=== PATIENT | male | born 1945 | race Caucasian/White ===

== ENCOUNTER 2016-11-12 01:02 | Emergency (ER) | payer MEDICARE ==
[~2016-11-12] VITALS: Ht 175.3 cm; Wt 81.8 kg
[~2016-11-12 01:02] MED LIST: ACET650S14 PR; ALPR0.255 PO; ASPI81TA2 PO; BENZ-26 PO; BISA10SU8 PR; BUSP5TAB20 PO; DSS100 PO; HYDR-3965 PO; IPRA3AMP4 NEB; MOM30 PO; SERT100T12 PO; SIMV40TA5 PO; THEO100T25 PO; TIOT185 IH
[2016-11-12] MEDS ORDERED: LORA0.5T2 PO (01:16)
[2016-11-12 02:07] LABS: BASOPHILS % (AUTO) 0.6 % (0.0-2.0); EOSINOPHILS % (AUTO) 2.5 % (1.0-6.0); HEMATOCRIT 41.4 % (41-53); HEMOGLOBIN 13.2 g/dL (13.5-17.5); LYMPHOCYTES # (AUTO) 1.5 K/uL (1.0-4.8); LYMPHOCYTES % (AUTO) 12.3 % (22.0-44.0); MEAN CORPUSCULAR HEMOGLOBIN 28.4 pg (26.0-34.0); MEAN CORPUSCULAR HGB CONC 31.8 G/dL (31.0-37.0); MEAN CORPUSCULAR VOLUME 90 fL (80-100); MONOCYTES # (AUTO) 0.5 K/uL (0.1-1.0); MONOCYTES % (AUTO) 4.4 % (2.0-9.0); NEUTROPHILS # (AUTO) 9.9 K/uL (1.8-7.7); NEUTROPHILS % (AUTO) 80.2 % (40.0-70.0); PLATELET COUNT (AUTO) 320 K/uL (150-450); RED BLOOD CELL COUNT(AUTO) 4.63 MIL/uL (4.50-5.90); RED CELL DISTRIBUTION WIDTH 15.7 % (11.5-14.5); WHITE BLOOD COUNT (AUTO) 12.3 K/uL (4.5-11.0)
[2016-11-12 02:14] LABS: INR 1.1 (0.9-1.1); PROTHROMBIN TIME 11.1 SEC (9.4-11.6)
[2016-11-12 02:15] LABS: ANION GAP 5 mmol/L (8-16); CALCIUM, TOTAL 9.2 mg/dL (8.8-10.5); CARBON DIOXIDE 36 mmol/L (22-29); CHLORIDE 100 mmol/L (98-107); CREATININE 0.65 mg/dL (0.60-1.30); GLOMERULAR FILTR. RATE CALC > 60 mL/min (>60); SODIUM SERUM 141 mmol/L (136-145); UREA NITROGEN, BLOOD 23 mg/dL (7-18)
[2016-11-12 02:21] LABS: ALANINE AMINOTRANSFERASE 17 U/L (12-78); ALBUMIN 3.6 g/dL (3.4-5.0); ASPARTATE AMINOTRANSFERASE 14 U/L (15-37); BILIRUBIN,TOTAL 0.2 mg/dL (0.1-1.0); CREATINE KINASE, TOTAL 63 U/L (39-308); TOTAL PROTEIN, SERUM 6.3 g/dL (6.4-8.2)
[2016-11-12 02:42] LABS: B-TYPE NATRIURETIC PEPTIDE 19 pg/mL (0-100)
[2016-11-12 03:29] VITALS: BP 124/70
== END 2016-11-12 03:57 | disposition home or self-care (01) ==
LOC: EMS 01:03
DX: J44.9 Chronic obstructive pulmonary disease, unspecified (principal); F41.9 Anxiety disorder, unspecified; J45.909 Unspecified asthma, uncomplicated; I10 Essential (primary) hypertension; Z79.82 Long term (current) use of aspirin; Z87.891 Personal history of nicotine dependence
CPT/HCPCS: 87040; 93005; 99285

== ENCOUNTER 2016-12-29 10:04 | Emergency (ER) | payer MEDICARE ==
[~2016-12-29] VITALS: Ht 177.8 cm; Wt 81.8 kg
[~2016-12-29 10:04] MED LIST changes: +LORA0.5T2 PO
[2016-12-29] MEDS ORDERED: NYST5L TP (10:20)
[2016-12-29] MEDS ORDERED: PANT40TA25 PO (10:20)
[2016-12-29] MEDS ORDERED: ACET325T47 PO (10:20)
[2016-12-29] MEDS ORDERED: GUAI100L26 PO (10:20)
[2016-12-29 10:23] LABS: BASOPHILS % (AUTO) 0.4 % (0.0-2.0); HEMATOCRIT 42.7 % (41-53); HEMOGLOBIN 13.6 g/dL (13.5-17.5); LYMPHOCYTES # (AUTO) 2.7 K/uL (1.0-4.8); LYMPHOCYTES % (AUTO) 23.3 % (22.0-44.0); MEAN CORPUSCULAR HEMOGLOBIN 28.5 pg (26.0-34.0); MEAN CORPUSCULAR HGB CONC 31.9 G/dL (31.0-37.0); MEAN CORPUSCULAR VOLUME 89 fL (80-100); MONOCYTES # (AUTO) 0.6 K/uL (0.1-1.0); MONOCYTES % (AUTO) 5.2 % (2.0-9.0); NEUTROPHILS # (AUTO) 7.8 K/uL (1.8-7.7); NEUTROPHILS % (AUTO) 68.1 % (40.0-70.0); PLATELET COUNT (AUTO) 303 K/uL (150-450); RED BLOOD CELL COUNT(AUTO) 4.79 MIL/uL (4.50-5.90); WHITE BLOOD COUNT (AUTO) 11.4 K/uL (4.5-11.0)
[2016-12-29 10:33] LABS: ANION GAP 5 mmol/L (8-16); CALCIUM, TOTAL 8.5 mg/dL (8.8-10.5); CARBON DIOXIDE 37 mmol/L (22-29); CHLORIDE 100 mmol/L (98-107); CREATININE 0.77 mg/dL (0.60-1.30); GLOMERULAR FILTR. RATE CALC > 60 mL/min (>60); POTASSIUM 3.9 mmol/L (3.5-5.1); SODIUM SERUM 142 mmol/L (136-145); UREA NITROGEN, BLOOD 18 mg/dL (7-18)
[2016-12-29 10:34] LABS: INR 1.1 (0.9-1.1); PROTHROMBIN TIME 11.3 SEC (9.4-11.6)
[2016-12-29 10:39] LABS: ALANINE AMINOTRANSFERASE 19 U/L (12-78); ALBUMIN 3.8 g/dL (3.4-5.0); ASPARTATE AMINOTRANSFERASE 15 U/L (15-37); BILIRUBIN,TOTAL 0.4 mg/dL (0.1-1.0); CREATINE KINASE, TOTAL 65 U/L (39-308); TOTAL PROTEIN, SERUM 7.5 g/dL (6.4-8.2)
[2016-12-29] MEDS ORDERED: MethylPREDNISolone SOD SUCC 125 MG/2 ML VIAL IVP ONE (10:45)
[2016-12-29] MEDS ORDERED: LORazepam 2 MG/ML VIAL IVP ONE (10:45)
[2016-12-29 10:53] LABS: B-TYPE NATRIURETIC PEPTIDE 21 pg/mL (0-100)
[2016-12-29] MEDS ORDERED: NYST15CR TP (10:53)
[2016-12-29] MEDS ORDERED: IPRATROPIUM BROMIDE 0.5 MG/2.5 ML NEB SOLUTION NEB ONE (12:15)
[2016-12-29] MEDS ORDERED: ALBUTEROL SULFATE 5 MG/ML 20 ML NEB SOLN [BULK] NEB ONE (12:15)
[2016-12-29 13:18] VITALS: BP 152/89
== END 2016-12-29 14:21 | disposition home or self-care (01) ==
LOC: EMS 10:07
DX: J44.1 Chronic obstructive pulmonary disease with (acute) exacerbation (principal); F41.9 Anxiety disorder, unspecified; Z87.891 Personal history of nicotine dependence; I10 Essential (primary) hypertension; J45.909 Unspecified asthma, uncomplicated; Z79.82 Long term (current) use of aspirin
CPT/HCPCS: 36415; 71010; 80053; 82550; 83880; 84484; 85025; 85610; 85730; 93005; 94060; 94644; 96374; 96375; 99285; J2060; J2930

== ENCOUNTER 2017-01-18 23:37 | Inpatient (IN) | payer MEDICARE ==
[~2017-01-18] VITALS: Ht 177.8 cm; Wt 87.3 kg
[~2017-01-18 23:37] MED LIST changes: -ALPR0.255 PO; -BENZ-26 PO; -BISA10SU8 PR; +GUAI100L26 PO; -HYDR-3965 PO; +NYST15CR TP; +PANT40TA25 PO; -THEO100T25 PO
[2017-01-19] VITALS (7 sets, daily range): BP systolic 106–156; BP diastolic 70–92
[2017-01-19] MEDS ORDERED: ALBUTEROL SULFATE 2.5 MG/0.5 ML NEB SOLUTION NEB ONE
[2017-01-19 00:15] LABS: ALANINE AMINOTRANSFERASE 20 U/L (12-78); ALBUMIN 3.2 g/dL (3.4-5.0); ANION GAP 0 mmol/L (8-16); ASPARTATE AMINOTRANSFERASE 13 U/L (15-37); BILIRUBIN,TOTAL 0.1 mg/dL (0.1-1.0); CALCIUM, TOTAL 8.9 mg/dL (8.8-10.5); CHLORIDE 101 mmol/L (98-107); CREATININE 0.77 mg/dL (0.60-1.30); GLOMERULAR FILTR. RATE CALC > 60 mL/min (>60); SODIUM SERUM 143 mmol/L (136-145); TOTAL PROTEIN, SERUM 6.7 g/dL (6.4-8.2); UREA NITROGEN, BLOOD 17 mg/dL (7-18)
[2017-01-19 00:16] LABS: BASOPHILS % (AUTO) 0.7 % (0.0-2.0); MONOCYTES # (AUTO) 0.7 K/uL (0.1-1.0)
[2017-01-19 00:20] LABS: EOSINOPHILS % (AUTO) 4.5 % (1.0-6.0); HEMATOCRIT 41.1 % (41-53); LYMPHOCYTES # (AUTO) 2.1 K/uL (1.0-4.8); LYMPHOCYTES % (AUTO) 20.3 % (22.0-44.0); MEAN CORPUSCULAR HEMOGLOBIN 28.6 pg (26.0-34.0); MEAN CORPUSCULAR HGB CONC 31.6 G/dL (31.0-37.0); MEAN CORPUSCULAR VOLUME 90 fL (80-100); MONOCYTES % (AUTO) 6.2 % (2.0-9.0); NEUTROPHILS # (AUTO) 7.2 K/uL (1.8-7.7); NEUTROPHILS % (AUTO) 68.3 % (40.0-70.0); PLATELET COUNT (AUTO) 293 K/uL (150-450); RED BLOOD CELL COUNT(AUTO) 4.54 MIL/uL (4.50-5.90); RED CELL DISTRIBUTION WIDTH 13.9 % (11.5-14.5); WHITE BLOOD COUNT (AUTO) 10.5 K/uL (4.5-11.0)
[2017-01-19 00:22] LABS: CARBON DIOXIDE 42 mmol/L (22-29)
[2017-01-19] MEDS ORDERED: MethylPREDNISolone SOD SUCC 125 MG/2 ML VIAL IVP ONE (00:30)
[2017-01-19] MEDS ORDERED: LORazepam 2 MG/ML VIAL IVP ONE (00:30)
[2017-01-19] MEDS ORDERED: ACETAMINOPHEN 325 MG TABLET PO PRN ×2 (02:00→07:30)
[2017-01-19] MEDS ORDERED: IPRATROPIUM BROMIDE 0.5 MG/2.5 ML NEB SOLUTION NEB ONE ×2 (02:00)
[2017-01-19] MEDS ORDERED: ALBUTEROL SULFATE 5 MG/ML 20 ML NEB SOLN [BULK] NEB ONE (02:00)
[2017-01-19] MEDS ORDERED: ONDANSETRON HCL 4 MG/2 ML VIAL IVP PRN (02:00)
[2017-01-19] MEDS ORDERED: 0.9% SODIUM CHLORIDE 10 ML SYRINGE IVP PRN (02:00)
[2017-01-19] MEDS ORDERED: 0.9% SODIUM CHLORIDE 5 ML NEB SOLUTION NEB ONE (02:07)
[2017-01-19 02:15] LABS: ABG A-A DIFF O2 77.5 mmHg (10-20.0); ABG BASE EXCESS 16.6 mmol/L (-2.0-3.0); ABG HCO3 35.8 mmol/L (22.0-26.0); ABG OXYHEMOGLOBIN 89.3 % (94.0-100.0); ABG PH 7.271 (7.35-7.450); TEMPERATURE, FAHRENHEIT, BG 98.6 FAHREN (96.0-98.6)
[2017-01-19] MEDS ORDERED: CefTRIAXone 1 GM/DEXTROSE 50 ML IV ONE (02:15)
[2017-01-19] MEDS: OXYGEN THERAPY IH SCH ×2 (02:17→07:23)
[2017-01-19 02:37] LABS: ABG PCO2 97 mmHg (35-45); ALLEN TEST, BLOOD GAS Positive
[2017-01-19] MEDS: IPRATROPIUM BROMIDE 0.5 MG/2.5 ML NEB SOLUTION NEB SCH ×5 (03:00→19:51)
[2017-01-19] MEDS: ALBUTEROL SULFATE 2.5 MG/0.5 ML NEB SOLUTION NEB SCH ×5 (03:00→19:51)
[2017-01-19] MEDS ORDERED: MAGNESIUM HYDROXIDE SUSPENSION 30 ML UDCUP PO PRN (07:30)
[2017-01-19] MEDS ORDERED: OxyCODONE HCL/ACETAMINOPHEN 5-325 MG TABLET PO PRN (07:30)
[2017-01-19] MEDS: MethylPREDNISolone SOD SUCC 125 MG/2 ML VIAL IVP SCH ×4 (08:28→23:13)
[2017-01-19] MEDS: HEPARIN SODIUM,PORCINE 5,000 UNITS/ML VIAL SQ SCH ×3 (08:29→23:13)
[2017-01-19] MEDS: PANTOPRAZOLE SODIUM 40 MG DR TABLET PO SCH (08:29)
[2017-01-19] MEDS: DOCUSATE SODIUM 100 MG CAPSULE PO SCH ×2 (08:29→19:59)
[2017-01-19] MEDS: TIOTROPIUM BROMIDE 18 MCG/INH HANDIHALER [5] IH SCH (08:30)
[2017-01-19] MEDS: LORazepam 0.5 MG TABLET PO PRN (19:59)
[2017-01-20] MEDS: IPRATROPIUM BROMIDE 0.5 MG/2.5 ML NEB SOLUTION NEB SCH ×7 (03:00→22:55)
[2017-01-20] MEDS: ALBUTEROL SULFATE 2.5 MG/0.5 ML NEB SOLUTION NEB SCH ×7 (03:00→22:55)
[2017-01-20 04:00] VITALS: BP 109/69
[2017-01-20] MEDS: MethylPREDNISolone SOD SUCC 125 MG/2 ML VIAL IVP SCH ×3 (05:25→22:55)
[2017-01-20 07:59] VITALS: BP 120/80
[2017-01-20] MEDS: HEPARIN SODIUM,PORCINE 5,000 UNITS/ML VIAL SQ SCH ×3 (08:33→22:55)
[2017-01-20] MEDS: PANTOPRAZOLE SODIUM 40 MG DR TABLET PO SCH (08:33)
[2017-01-20] MEDS: DOCUSATE SODIUM 100 MG CAPSULE PO SCH ×2 (08:33→20:43)
[2017-01-20] MEDS: TIOTROPIUM BROMIDE 18 MCG/INH HANDIHALER [5] IH SCH (10:12)
[2017-01-20 11:21] VITALS: BP 123/80
[2017-01-20] MEDS: ALPRAZolam 0.5 MG TABLET PO PRN (12:13)
[2017-01-20] MEDS ORDERED: ALBUTEROL SULFATE HFA 90 MCG/PUFF 8 GM INHALER IH PRN (12:45)
[2017-01-20] MEDS ORDERED: TIOTROPIUM BROMIDE 18 MCG/INH HANDIHALER [5] IH SCH (13:00)
[2017-01-20 15:59] VITALS: BP 122/87
[2017-01-20 19:19] VITALS: BP 125/74
[2017-01-20] MEDS: GuaiFENesin/D-METHORPHAN [SUGAR-FREE] 200-20MG/10 ML SYRUP UDCUP PO PRN (20:43)
[2017-01-20 23:49] VITALS: BP 102/68
[2017-01-21] MEDS: IPRATROPIUM BROMIDE 0.5 MG/2.5 ML NEB SOLUTION NEB SCH ×6 (03:50→23:05)
[2017-01-21] MEDS: ALBUTEROL SULFATE 2.5 MG/0.5 ML NEB SOLUTION NEB SCH ×6 (03:50→23:05)
[2017-01-21 04:35] VITALS: BP 133/87
[2017-01-21] MEDS: MethylPREDNISolone SOD SUCC 125 MG/2 ML VIAL IVP SCH ×3 (07:56→23:10)
[2017-01-21] MEDS: HEPARIN SODIUM,PORCINE 5,000 UNITS/ML VIAL SQ SCH ×3 (07:56→23:10)
[2017-01-21] MEDS: PANTOPRAZOLE SODIUM 40 MG DR TABLET PO SCH (08:00)
[2017-01-21] MEDS: DOCUSATE SODIUM 100 MG CAPSULE PO SCH ×2 (08:00→20:53)
[2017-01-21] MEDS: TIOTROPIUM BROMIDE 18 MCG/INH HANDIHALER [5] IH SCH (08:01)
[2017-01-21 08:15] VITALS: BP 140/83
[2017-01-21] MEDS: ALPRAZolam 0.5 MG TABLET PO PRN ×2 (09:28→20:55)
[2017-01-21 11:47] VITALS: BP 124/85
[2017-01-21 15:25] VITALS: BP 131/70
[2017-01-21 19:44] VITALS: BP 103/68
[2017-01-21] MEDS: GuaiFENesin/D-METHORPHAN [SUGAR-FREE] 200-20MG/10 ML SYRUP UDCUP PO PRN (20:57)
[2017-01-21] MEDS ORDERED: MOMETASONE FUROATE 50 MCG/SPRAY 17 GM NASAL SPRAY NASAL ONE (21:45)
[2017-01-21] MEDS: MOMETASONE FUROATE 50 MCG/SPRAY 17 GM NASAL SPRAY NASAL SCH (22:27)
[2017-01-21 23:33] VITALS: BP 130/87
[2017-01-22] MEDS: ALBUTEROL SULFATE 2.5 MG/0.5 ML NEB SOLUTION NEB SCH ×6 (02:56→23:11)
[2017-01-22] MEDS: IPRATROPIUM BROMIDE 0.5 MG/2.5 ML NEB SOLUTION NEB SCH ×6 (02:56→23:11)
[2017-01-22 05:12] VITALS: BP 112/74
[2017-01-22 07:52] VITALS: BP 118/67
[2017-01-22] MEDS: MethylPREDNISolone SOD SUCC 125 MG/2 ML VIAL IVP SCH (08:09)
[2017-01-22] MEDS: HEPARIN SODIUM,PORCINE 5,000 UNITS/ML VIAL SQ SCH ×3 (08:09→23:08)
[2017-01-22] MEDS: DOCUSATE SODIUM 100 MG CAPSULE PO SCH ×2 (08:09→19:46)
[2017-01-22] MEDS: PANTOPRAZOLE SODIUM 40 MG DR TABLET PO SCH (08:09)
[2017-01-22] MEDS: TIOTROPIUM BROMIDE 18 MCG/INH HANDIHALER [5] IH SCH (08:10)
[2017-01-22] MEDS: MOMETASONE FUROATE 50 MCG/SPRAY 17 GM NASAL SPRAY NASAL SCH (08:10)
[2017-01-22] MEDS: GuaiFENesin/D-METHORPHAN [SUGAR-FREE] 200-20MG/10 ML SYRUP UDCUP PO PRN (09:32)
[2017-01-22] MEDS: ALPRAZolam 0.5 MG TABLET PO PRN ×2 (09:32→21:16)
[2017-01-22] MEDS: PredniSONE 20 MG TABLET PO SCH (10:15)
[2017-01-22] MEDS ORDERED: ALBUTEROL SULFATE 2.5 MG/0.5 ML NEB SOLUTION NEB PRN (10:15)
[2017-01-22 10:27] LABS: BASOPHILS # (AUTO) 0.06 K/uL (0.00-0.20); BASOPHILS % (AUTO) 0.5 % (0.0-2.0); EOSINOPHILS % (AUTO) 0.02 % (1.0-6.0); HEMATOCRIT 41.5 % (41-53); HEMOGLOBIN 13.2 g/dL (13.5-17.5); LYMPHOCYTES # (AUTO) 0.6 K/uL (1.0-4.8); LYMPHOCYTES % (AUTO) 5.1 % (22.0-44.0); MEAN CORPUSCULAR HEMOGLOBIN 28.6 pg (26.0-34.0); MEAN CORPUSCULAR HGB CONC 31.8 G/dL (31.0-37.0); MEAN CORPUSCULAR VOLUME 90 fL (80-100); MONOCYTES # (AUTO) 0.7 K/uL (0.1-1.0); MONOCYTES % (AUTO) 5.8 % (2.0-9.0); NEUTROPHILS # (AUTO) 10.4 K/uL (1.8-7.7); PLATELET COUNT (AUTO) 324 K/uL (150-450); RED BLOOD CELL COUNT(AUTO) 4.62 MIL/uL (4.50-5.90); WHITE BLOOD COUNT (AUTO) 11.7 K/uL (4.5-11.0)
[2017-01-22 10:29] LABS: NEUTROPHILS % (AUTO) 88.6 % (40.0-70.0); RBC MORPHOLOGY COMMENT NORMAL RBC MORPH
[2017-01-22 10:34] LABS: ANION GAP 1 mmol/L (8-16); CALCIUM, TOTAL 8.3 mg/dL (8.8-10.5); CHLORIDE 100 mmol/L (98-107); CREATININE 0.61 mg/dL (0.60-1.30); GLOMERULAR FILTR. RATE CALC > 60 mL/min (>60); POTASSIUM 4.5 mmol/L (3.5-5.1); SODIUM SERUM 142 mmol/L (136-145); UREA NITROGEN, BLOOD 24 mg/dL (7-18)
[2017-01-22 10:38] LABS: CARBON DIOXIDE 41 mmol/L (22-29)
[2017-01-22 15:46] VITALS: BP 109/83
[2017-01-22 20:03] VITALS: BP 121/72
[2017-01-22] MEDS: NYSTATIN 30 GM CREAM TP SCH (21:16)
[2017-01-22 23:12] VITALS: BP 120/63
[2017-01-23] MEDS: ALBUTEROL SULFATE 2.5 MG/0.5 ML NEB SOLUTION NEB SCH ×6 (03:00→23:46)
[2017-01-23] MEDS: IPRATROPIUM BROMIDE 0.5 MG/2.5 ML NEB SOLUTION NEB SCH ×6 (03:00→23:46)
[2017-01-23 05:37] VITALS: BP 117/73
[2017-01-23] MEDS: TIOTROPIUM BROMIDE 18 MCG/INH HANDIHALER [5] IH SCH (08:52)
[2017-01-23] MEDS: MOMETASONE FUROATE 50 MCG/SPRAY 17 GM NASAL SPRAY NASAL SCH (08:53)
[2017-01-23] MEDS: HEPARIN SODIUM,PORCINE 5,000 UNITS/ML VIAL SQ SCH ×3 (08:54→23:29)
[2017-01-23] MEDS: NYSTATIN 30 GM CREAM TP SCH ×2 (08:55→20:10)
[2017-01-23] MEDS: PANTOPRAZOLE SODIUM 40 MG DR TABLET PO SCH (08:55)
[2017-01-23] MEDS: PredniSONE 20 MG TABLET PO SCH (08:55)
[2017-01-23] MEDS: DOCUSATE SODIUM 100 MG CAPSULE PO SCH ×2 (08:55→20:10)
[2017-01-23] MEDS ORDERED: 0.9% SODIUM CHLORIDE 5 ML NEB SOLUTION NEB ONE (10:08)
[2017-01-23] MEDS: ALPRAZolam 0.5 MG TABLET PO PRN ×2 (10:10→23:29)
[2017-01-23 12:45] VITALS: BP 98/66
[2017-01-23 16:12] VITALS: BP 107/59
[2017-01-23 20:02] VITALS: BP 126/69
[2017-01-23] MEDS: LORazepam 0.5 MG TABLET PO PRN (20:10)
[2017-01-23 23:32] VITALS: BP 128/81
[2017-01-24 03:30] VITALS: BP 124/78
[2017-01-24] MEDS: ALBUTEROL SULFATE 2.5 MG/0.5 ML NEB SOLUTION NEB SCH ×2 (03:32→07:21)
[2017-01-24] MEDS: IPRATROPIUM BROMIDE 0.5 MG/2.5 ML NEB SOLUTION NEB SCH ×2 (03:32→07:21)
[2017-01-24 07:29] VITALS: BP 152/97
[2017-01-24] MEDS: PredniSONE 20 MG TABLET PO SCH (10:11)
[2017-01-24] MEDS: MOMETASONE FUROATE 50 MCG/SPRAY 17 GM NASAL SPRAY NASAL SCH (10:11)
[2017-01-24] MEDS: PANTOPRAZOLE SODIUM 40 MG DR TABLET PO SCH (10:11)
[2017-01-24] MEDS: HEPARIN SODIUM,PORCINE 5,000 UNITS/ML VIAL SQ SCH (10:12)
[2017-01-24] MEDS: DOCUSATE SODIUM 100 MG CAPSULE PO SCH (10:12)
[2017-01-24] MEDS: TIOTROPIUM BROMIDE 18 MCG/INH HANDIHALER [5] IH SCH (10:12)
[2017-01-24] MEDS: NYSTATIN 30 GM CREAM TP SCH (10:16)
== END 2017-01-24 11:14 | DRG 189 ==
LOC: EMS 23:38 → 6N 01-19 02:07
PROVIDERS: ADMIT Internal Medicine; ATTEND Internal Medicine
PROC: 5A09357 Assistance with Respiratory Ventilation, Less than 24 Consecutive Hours, Continuous Positive Airway Pressure (ICD-10-PCS; principal; 2017-01-19)
DX: J96.21 Acute and chronic respiratory failure with hypoxia (principal); J44.1 Chronic obstructive pulmonary disease with (acute) exacerbation; R64 Cachexia; J96.22 Acute and chronic respiratory failure with hypercapnia; J96.11 Chronic respiratory failure with hypoxia; F41.1 Generalized anxiety disorder; I10 Essential (primary) hypertension; J45.909 Unspecified asthma, uncomplicated; Z72.0 Tobacco use; Z91.19 Patient's noncompliance with other medical treatment and regimen; Z79.82 Long term (current) use of aspirin; Z79.51 Long term (current) use of inhaled steroids; Z79.899 Other long term (current) drug therapy; Z98.890 Other specified postprocedural states; Z90.49 Acquired absence of other specified parts of digestive tract
CPT/HCPCS: 82805; 87040; 87081; 93005; 94640; 94644; 94660; 96365; 96375; 97161; 99291; J1644; J2060; J2930; J3535

== ENCOUNTER 2017-02-09 13:10 | Inpatient (IN) | payer MEDICARE ==
[~2017-02-09] VITALS: Ht 167.6 cm; Wt 93.9 kg
[2017-02-09] MEDS ORDERED: ACETAMINOPHEN 325 MG TABLET PO ONE (14:00)
[2017-02-09] MEDS ORDERED: ALBUTEROL SULFATE 5 MG/ML 20 ML NEB SOLN [BULK] NEB ONE ×2 (14:00→15:30)
[2017-02-09] MEDS ORDERED: IPRATROPIUM BROMIDE 0.5 MG/2.5 ML NEB SOLUTION NEB ONE ×2 (14:00→15:30)
[2017-02-09] MEDS ORDERED: MethylPREDNISolone SOD SUCC 125 MG/2 ML VIAL IVP ONE (14:00)
[2017-02-09 14:05] LABS: EOSINOPHILS % (AUTO) 0.02 % (1.0-6.0); HEMATOCRIT 44.2 % (41-53); HEMOGLOBIN 13.9 g/dL (13.5-17.5); LYMPHOCYTES # (AUTO) 0.2 K/uL (1.0-4.8); LYMPHOCYTES % (AUTO) 1.1 % (22.0-44.0); MEAN CORPUSCULAR HEMOGLOBIN 28.5 pg (26.0-34.0); MEAN CORPUSCULAR HGB CONC 31.3 G/dL (31.0-37.0); MEAN CORPUSCULAR VOLUME 91 fL (80-100); MONOCYTES # (AUTO) 0.2 K/uL (0.1-1.0); NEUTROPHILS # (AUTO) 17.5 K/uL (1.8-7.7); PLATELET COUNT (AUTO) 271 K/uL (150-450); RED BLOOD CELL COUNT(AUTO) 4.86 MIL/uL (4.50-5.90); RED CELL DISTRIBUTION WIDTH 13.8 % (11.5-14.5); WHITE BLOOD COUNT (AUTO) 17.9 K/uL (4.5-11.0)
[2017-02-09 14:06] LABS: NEUTROPHILS % (AUTO) 97.9 % (40.0-70.0)
[2017-02-09 14:21] LABS: ALANINE AMINOTRANSFERASE 20 U/L (12-78); ALBUMIN 3.1 g/dL (3.4-5.0); ANION GAP 0 mmol/L (8-16); ASPARTATE AMINOTRANSFERASE 12 U/L (15-37); BILIRUBIN,TOTAL 0.5 mg/dL (0.1-1.0); CALCIUM, TOTAL 9.1 mg/dL (8.8-10.5); CHLORIDE 91 mmol/L (98-107); CREATINE KINASE, TOTAL 32 U/L (39-308); CREATININE 0.61 mg/dL (0.60-1.30); GLOMERULAR FILTR. RATE CALC > 60 mL/min (>60); POTASSIUM 4.9 mmol/L (3.5-5.1); SODIUM SERUM 134 mmol/L (136-145); TOTAL PROTEIN, SERUM 7.6 g/dL (6.4-8.2); UREA NITROGEN, BLOOD 24 mg/dL (7-18)
[2017-02-09 14:26] LABS: CARBON DIOXIDE 43 mmol/L (22-29)
[2017-02-09 14:30] LABS: B-TYPE NATRIURETIC PEPTIDE 38 pg/mL (0-100)
[2017-02-09 15:16] LABS: ABG BASE EXCESS 19.1 mmol/L (-2.0-3.0); ABG HCO3 37.3 mmol/L (22.0-26.0); ABG PH 7.218 (7.35-7.450); TEMPERATURE, FAHRENHEIT, BG 98.3 FAHREN (96.0-98.6)
[2017-02-09 15:18] LABS: ABG PCO2 118 mmHg (35-45); ALLEN TEST, BLOOD GAS Positive
[2017-02-09 17:19] LABS: ABG A-A DIFF O2 99.5 mmHg (10-20.0); ABG BASE EXCESS 17.8 mmol/L (-2.0-3.0); ABG HCO3 36.5 mmol/L (22.0-26.0); ABG OXYHEMOGLOBIN 90.6 % (94.0-100.0); ABG PH 7.266 (7.35-7.450); TEMPERATURE, FAHRENHEIT, BG 98.6 FAHREN (96.0-98.6)
[2017-02-09 17:21] LABS: ABG PCO2 101 mmHg (35-45); ALLEN TEST, BLOOD GAS Positive
[2017-02-09 17:22] LABS: IPAP, BG 16 cm H2O
[2017-02-09] MEDS ORDERED: ACETAMINOPHEN 325 MG TABLET PO PRN (18:45)
[2017-02-09] MEDS ORDERED: ONDANSETRON HCL 4 MG/2 ML VIAL IVP PRN (18:45)
[2017-02-09] MEDS: IPRATROPIUM BROMIDE 0.5 MG/2.5 ML NEB SOLUTION NEB SCH ×2 (19:02→23:37)
[2017-02-09] MEDS: ALBUTEROL SULFATE 2.5 MG/0.5 ML NEB SOLUTION NEB SCH ×2 (19:02→23:37)
[2017-02-09 20:58] VITALS: BP 145/94
[2017-02-10] VITALS (8 sets, daily range): BP systolic 76–158; BP diastolic 54–84
[2017-02-10] MEDS ORDERED: MAGNESIUM HYDROXIDE SUSPENSION 30 ML UDCUP PO PRN (01:15)
[2017-02-10] MEDS ORDERED: ONDANSETRON HCL 4 MG/2 ML VIAL IVP PRN (01:15)
[2017-02-10] MEDS ORDERED: BISACODYL 10 MG RECTAL RECTAL SUPPOSITORY PR PRN (01:15)
[2017-02-10] MEDS ORDERED: ACETAMINOPHEN 325 MG TABLET PO PRN (01:15)
[2017-02-10] MEDS ORDERED: GuaiFENesin [SUGAR-FREE] 200 MG/10 ML SOLUTION UDCUP PO PRN (01:15)
[2017-02-10] MEDS ORDERED: ZOLPIDEM TARTRATE 5 MG TABLET PO PRN (01:15)
[2017-02-10] MEDS: MethylPREDNISolone SOD SUCC 125 MG/2 ML VIAL IVP SCH ×3 (05:41→18:17)
[2017-02-10] MEDS: HEPARIN SODIUM,PORCINE 5,000 UNITS/ML VIAL SQ SCH ×2 (08:00→15:04)
[2017-02-10] MEDS: ASPIRIN 81 MG CHEWABLE TABLET PO SCH (09:00)
[2017-02-10] MEDS: DOCUSATE SODIUM 100 MG CAPSULE PO SCH ×2 (09:00→21:38)
[2017-02-10] MEDS ORDERED: PANTOPRAZOLE SODIUM 40 MG DR TABLET PO SCH (09:00)
[2017-02-10] MEDS: BusPIRone HCL 5 MG TABLET PO SCH ×2 (09:00→23:05)
[2017-02-10] MEDS: PANTOPRAZOLE SODIUM 40 MG/VIAL IVP SCH (09:00)
[2017-02-10 10:36] LABS: ABG A-A DIFF O2 107.2 mmHg (10-20.0); ABG BASE EXCESS 20.2 mmol/L (-2.0-3.0); ABG HCO3 36.9 mmol/L (22.0-26.0); ABG OXYHEMOGLOBIN 91.6 % (94.0-100.0); TEMPERATURE, FAHRENHEIT, BG 98.1 FAHREN (96.0-98.6)
[2017-02-10 10:41] LABS: ABG PCO2 154 mmHg (35-45); ABG PH 7.124 (7.35-7.450); ALLEN TEST, BLOOD GAS Positive
[2017-02-10 10:42] LABS: IPAP, BG 20 cm H2O
[2017-02-10] MEDS ORDERED: VECURONIUM BROMIDE 10 MG/VIAL IVP ONE (11:20)
[2017-02-10] MEDS ORDERED: ETOMIDATE 2 MG/ML 10 ML VIAL IVP ONE (11:20)
[2017-02-10 12:27] LABS: ABG A-A DIFF O2 183.1 mmHg (10-20.0); ABG BASE EXCESS 12.2 mmol/L (-2.0-3.0); ABG HCO3 32.2 mmol/L (22.0-26.0); ABG OXYHEMOGLOBIN 93.3 % (94.0-100.0); ABG PH 7.273 (7.35-7.450); TEMPERATURE, FAHRENHEIT, BG 98.6 FAHREN (96.0-98.6)
[2017-02-10 12:28] LABS: ABG PCO2 86 mmHg (35-45); ALLEN TEST, BLOOD GAS Positive
[2017-02-10 12:29] LABS: INSIPIRATORY PRESSURE, BG 32 cm H2O
[2017-02-10] MEDS: SODIUM CHLORIDE 0.9% 1,000 ML IV SCH (15:05)
[2017-02-10] MEDS: MORPHINE SULFATE 2 MG/ML SYRINGE IVP PRN (16:08)
[2017-02-10] MEDS ORDERED: ETOMIDATE 2 MG/ML 10 ML VIAL IV ONE (16:55)
[2017-02-10] MEDS ORDERED: VECURONIUM BROMIDE 10 MG/VIAL IV ONE (16:55)
[2017-02-10] MEDS ORDERED: VANCOMYCIN HCL 1 GM/D5% WATER 200 ML IV ONE (17:00)
[2017-02-10] MEDS ORDERED: RAPID SEQUENCE KIT [RSI] 1 EACH KIT ONE ×2 (17:05)
[2017-02-10] MEDS ORDERED: SODIUM CHLORIDE 0.9% 250 ML IV ONE ×3 (17:15→20:00)
[2017-02-10] MEDS: PIPERACILLIN/TAZO 3.375 GM/D5W 50 ML IV SCH ×2 (17:19→23:06)
[2017-02-10 17:24] LABS: CREATINE KINASE, TOTAL 20 U/L (39-308)
[2017-02-10] MEDS ORDERED: 0.9% SODIUM CHLORIDE 10 ML SYRINGE IVP PRN (17:30)
[2017-02-10] MEDS: ALBUMIN HUMAN 25%-12.5GM/50ML 50 ML IV SCH (18:17)
[2017-02-10 19:28] LABS: HEMOGLOBIN 12.2 g/dL (13.5-17.5); MEAN CORPUSCULAR HEMOGLOBIN 28.7 pg (26.0-34.0); MEAN CORPUSCULAR HGB CONC 32.1 G/dL (31.0-37.0); MEAN CORPUSCULAR VOLUME 89 fL (80-100); PLATELET COUNT (AUTO) 253 K/uL (150-450); RED BLOOD CELL COUNT(AUTO) 4.25 MIL/uL (4.50-5.90); RED CELL DISTRIBUTION WIDTH 14.2 % (11.5-14.5); WHITE BLOOD COUNT (AUTO) 8.2 K/uL (4.5-11.0)
[2017-02-10 19:41] LABS: CALCIUM, TOTAL 8.9 mg/dL (8.8-10.5); CREATININE 2.12 mg/dL (0.60-1.30); POTASSIUM 5.1 mmol/L (3.5-5.1)
[2017-02-10 19:46] LABS: ALBUMIN 2.9 g/dL (3.4-5.0); BILIRUBIN,TOTAL 0.7 mg/dL (0.1-1.0); TOTAL PROTEIN, SERUM 7.1 g/dL (6.4-8.2)
[2017-02-10 19:49] LABS: BAND NEUTROPHILS % (MANUAL) 23 % (1-5); EOSINOPHILS % (MANUAL) 1 % (1-6); LYMPHOCYTES % (MANUAL) 6 % (22-44); RBC MORPHOLOGY COMMENT NORMAL RBC; TOTAL CELLS COUNTED 100
[2017-02-10] MEDS: SIMVASTATIN 40 MG TABLET PO SCH (21:38)
[2017-02-10] MEDS: LORazepam 0.5 MG TABLET PO SCH (21:38)
[2017-02-10] MEDS ORDERED: VANCOMYCIN HCL 500 MG in DEXTROSE 5%-WATER 100 ML IV ONE (23:00)
[2017-02-11] VITALS (9 sets, daily range): BP systolic 105–148; BP diastolic 57–86
[2017-02-11] MEDS: MethylPREDNISolone SOD SUCC 125 MG/2 ML VIAL IVP SCH ×5 (01:28→23:26)
[2017-02-11] MEDS: HEPARIN SODIUM,PORCINE 5,000 UNITS/ML VIAL SQ SCH ×4 (01:29→23:27)
[2017-02-11 02:15] LABS: CREATINE KINASE, TOTAL 43 U/L (39-308)
[2017-02-11] MEDS: ALBUMIN HUMAN 25%-12.5GM/50ML 50 ML IV SCH ×3 (02:22→18:00)
[2017-02-11] MEDS: MORPHINE SULFATE 2 MG/ML SYRINGE IVP PRN ×3 (02:23→22:17)
[2017-02-11] MEDS: SODIUM CHLORIDE 0.9% 1,000 ML IV SCH ×2 (04:54→18:24)
[2017-02-11] MEDS: PIPERACILLIN/TAZO 3.375 GM/D5W 50 ML IV SCH ×4 (04:55→22:36)
[2017-02-11 06:21] LABS: BASOPHILS % (AUTO) 0.1 % (0.0-2.0); EOSINOPHILS % (AUTO) 0 % (1.0-6.0); HEMATOCRIT 35.1 % (41-53); HEMOGLOBIN 11.1 g/dL (13.5-17.5); LYMPHOCYTES # (AUTO) 0.4 K/uL (1.0-4.8); LYMPHOCYTES % (AUTO) 4.3 % (22.0-44.0); MEAN CORPUSCULAR HEMOGLOBIN 28.2 pg (26.0-34.0); MEAN CORPUSCULAR HGB CONC 31.6 G/dL (31.0-37.0); MEAN CORPUSCULAR VOLUME 89 fL (80-100); MONOCYTES # (AUTO) 0.3 K/uL (0.1-1.0); MONOCYTES % (AUTO) 3.3 % (2.0-9.0); NEUTROPHILS # (AUTO) 8.6 K/uL (1.8-7.7); PLATELET COUNT (AUTO) 268 K/uL (150-450); RED BLOOD CELL COUNT(AUTO) 3.94 MIL/uL (4.50-5.90); WHITE BLOOD COUNT (AUTO) 9.4 K/uL (4.5-11.0)
[2017-02-11 07:06] LABS: ALBUMIN 2.7 g/dL (3.4-5.0); BILIRUBIN,TOTAL 0.6 mg/dL (0.1-1.0); CALCIUM, TOTAL 8.7 mg/dL (8.8-10.5); CREATININE 1.44 mg/dL (0.60-1.30); MAGNESIUM 2.3 mg/dL (1.80-2.40); THYROID STIMULATING HORMONE 0.43 uIU/mL (0.36-3.74); TOTAL PROTEIN, SERUM 6.8 g/dL (6.4-8.2)
[2017-02-11 07:23] LABS: NEUTROPHILS % (AUTO) 92.3 % (40.0-70.0)
[2017-02-11] MEDS ORDERED: VANCOMYCIN HCL 1 GM/D5% WATER 200 ML IV SCH (08:00)
[2017-02-11] MEDS ORDERED: VANCOMYCIN HCL 1.5 GM in DEXTROSE 5%-WATER 250 ML IV SCH (08:00)
[2017-02-11] MEDS: PANTOPRAZOLE SODIUM 40 MG/VIAL IVP SCH (08:29)
[2017-02-11] MEDS: ASPIRIN 81 MG CHEWABLE TABLET PO SCH (08:29)
[2017-02-11] MEDS: DOCUSATE SODIUM 100 MG CAPSULE PO SCH ×2 (08:29→21:09)
[2017-02-11] MEDS: BusPIRone HCL 5 MG TABLET PO SCH ×2 (08:29→21:09)
[2017-02-11 08:50] LABS: CREATINE KINASE, TOTAL 69 U/L (39-308)
[2017-02-11] MEDS: BUDESONIDE 0.5 MG/2 ML NEB SOLUTION NEB SCH ×2 (08:55→20:46)
[2017-02-11 11:12] LABS: ABG A-A DIFF O2 119.1 mmHg (10-20.0); ABG BASE EXCESS 9.9 mmol/L (-2.0-3.0); ABG HCO3 32.1 mmol/L (22.0-26.0); ABG OXYHEMOGLOBIN 97.7 % (94.0-100.0); ABG PCO2 56 mmHg (35-45); TEMPERATURE, FAHRENHEIT, BG 98.1 FAHREN (96.0-98.6)
[2017-02-11 11:13] LABS: ALLEN TEST, BLOOD GAS Positive
[2017-02-11] MEDS ORDERED: SODIUM PHOS,M-BASIC-D-BASIC 30 MMOL in DEXTROSE 5%-WATER 250 ML IV ONE (13:00)
[2017-02-11] MEDS: ACETYLCYSTEINE 20% 200 MG/ML 4 ML NEB SOLUTION NEB SCH ×2 (16:36→20:47)
[2017-02-11] MEDS: HYDROCODONE/ACETAMINOPHEN 5-325 MG TABLET PO PRN (16:44)
[2017-02-11] MEDS: ALBUTEROL SULFATE 2.5 MG/0.5 ML NEB SOLUTION NEB PRN (20:46)
[2017-02-11] MEDS: LORazepam 0.5 MG TABLET PO SCH (21:08)
[2017-02-11] MEDS: SIMVASTATIN 40 MG TABLET PO SCH (21:08)
[2017-02-12] VITALS (8 sets, daily range): BP systolic 110–168; BP diastolic 60–97
[2017-02-12] MEDS: MORPHINE SULFATE 2 MG/ML SYRINGE IVP PRN ×3 (00:58→16:47)
[2017-02-12] MEDS: ALBUMIN HUMAN 25%-12.5GM/50ML 50 ML IV SCH ×3 (01:19→18:42)
[2017-02-12] MEDS: PIPERACILLIN/TAZO 3.375 GM/D5W 50 ML IV SCH ×4 (05:05→23:10)
[2017-02-12 05:25] LABS: BASOPHILS # (AUTO) 0.01 K/uL (0.00-0.20); BASOPHILS % (AUTO) 0.1 % (0.0-2.0); EOSINOPHILS % (AUTO) 0.01 % (1.0-6.0); HEMATOCRIT 30.6 % (41-53); HEMOGLOBIN 9.9 g/dL (13.5-17.5); LYMPHOCYTES # (AUTO) 0.4 K/uL (1.0-4.8); LYMPHOCYTES % (AUTO) 4.2 % (22.0-44.0); MEAN CORPUSCULAR HEMOGLOBIN 28.9 pg (26.0-34.0); MEAN CORPUSCULAR HGB CONC 32.3 G/dL (31.0-37.0); MEAN CORPUSCULAR VOLUME 89 fL (80-100); MONOCYTES # (AUTO) 0.2 K/uL (0.1-1.0); MONOCYTES % (AUTO) 1.9 % (2.0-9.0); NEUTROPHILS # (AUTO) 7.9 K/uL (1.8-7.7); PLATELET COUNT (AUTO) 237 K/uL (150-450); RED BLOOD CELL COUNT(AUTO) 3.42 MIL/uL (4.50-5.90); RED CELL DISTRIBUTION WIDTH 13.9 % (11.5-14.5); WHITE BLOOD COUNT (AUTO) 8.4 K/uL (4.5-11.0)
[2017-02-12 05:41] LABS: NEUTROPHILS % (AUTO) 93.8 % (40.0-70.0)
[2017-02-12 05:55] LABS: ALANINE AMINOTRANSFERASE 70 U/L (12-78); ALBUMIN 2.8 g/dL (3.4-5.0); ANION GAP 9 mmol/L (8-16); ASPARTATE AMINOTRANSFERASE 32 U/L (15-37); BILIRUBIN,TOTAL 0.4 mg/dL (0.1-1.0); CALCIUM, TOTAL 7.8 mg/dL (8.8-10.5); CARBON DIOXIDE 33 mmol/L (22-29); CHLORIDE 96 mmol/L (98-107); CREATININE 0.88 mg/dL (0.60-1.30); GLOMERULAR FILTR. RATE CALC > 60 mL/min (>60); POTASSIUM 3.7 mmol/L (3.5-5.1); SODIUM SERUM 138 mmol/L (136-145); TOTAL PROTEIN, SERUM 6.4 g/dL (6.4-8.2); UREA NITROGEN, BLOOD 47 mg/dL (7-18)
[2017-02-12] MEDS: MethylPREDNISolone SOD SUCC 125 MG/2 ML VIAL IVP SCH ×4 (06:10→23:10)
[2017-02-12] MEDS: BUDESONIDE 0.5 MG/2 ML NEB SOLUTION NEB SCH ×2 (07:32→20:46)
[2017-02-12] MEDS: ACETYLCYSTEINE 20% 200 MG/ML 4 ML NEB SOLUTION NEB SCH ×4 (07:33→20:46)
[2017-02-12 07:40] LABS: RBC MORPHOLOGY COMMENT NORMAL RBC MORPH
[2017-02-12 07:52] LABS: ABG A-A DIFF O2 49.9 mmHg (10-20.0); ABG BASE EXCESS 5.6 mmol/L (-2.0-3.0); ABG HCO3 28.8 mmol/L (22.0-26.0); ABG OXYHEMOGLOBIN 99.1 % (94.0-100.0); ABG PCO2 48 mmHg (35-45); ABG PH 7.417 (7.35-7.450); ALLEN TEST, BLOOD GAS Positive; TEMPERATURE, FAHRENHEIT, BG 98.6 FAHREN (96.0-98.6)
[2017-02-12 07:53] LABS: INSIPIRATORY PRESSURE, BG 32 cm H2O
[2017-02-12] MEDS: VANCOMYCIN HCL 1 GM/D5% WATER 200 ML IV SCH ×2 (08:30→19:33)
[2017-02-12] MEDS: DOCUSATE SODIUM 100 MG CAPSULE PO SCH ×2 (08:31→20:55)
[2017-02-12] MEDS: ASPIRIN 81 MG CHEWABLE TABLET PO SCH (08:31)
[2017-02-12] MEDS: SODIUM CHLORIDE 0.9% 1,000 ML IV SCH ×2 (08:31→23:11)
[2017-02-12] MEDS: BusPIRone HCL 5 MG TABLET PO SCH ×2 (08:32→20:55)
[2017-02-12] MEDS: PANTOPRAZOLE SODIUM 40 MG/VIAL IVP SCH (08:32)
[2017-02-12] MEDS: HEPARIN SODIUM,PORCINE 5,000 UNITS/ML VIAL SQ SCH ×3 (08:39→23:10)
[2017-02-12] MEDS: LORazepam 2 MG/ML VIAL IVP PRN (16:40)
[2017-02-12] MEDS: PROPOFOL 1000 MG/ISO-OSM 100 ML IV PRN (19:30)
[2017-02-12] MEDS ORDERED: SODIUM CHLORIDE 0.9% 250 ML IV ONE (19:48)
[2017-02-12] MEDS: ALBUTEROL SULFATE 2.5 MG/0.5 ML NEB SOLUTION NEB PRN (20:45)
[2017-02-12] MEDS: SIMVASTATIN 40 MG TABLET PO SCH (20:55)
[2017-02-12] MEDS: LORazepam 0.5 MG TABLET PO SCH (20:55)
[2017-02-13] VITALS (8 sets, daily range): BP systolic 109–166; BP diastolic 66–98
[2017-02-13] MEDS: ALBUMIN HUMAN 25%-12.5GM/50ML 50 ML IV SCH ×3 (02:12→17:51)
[2017-02-13] MEDS: MethylPREDNISolone SOD SUCC 125 MG/2 ML VIAL IVP SCH ×4 (05:24→23:42)
[2017-02-13] MEDS: PIPERACILLIN/TAZO 3.375 GM/D5W 50 ML IV SCH ×4 (05:24→23:05)
[2017-02-13 05:44] LABS: BASOPHILS # (AUTO) 0.02 K/uL (0.00-0.20); BASOPHILS % (AUTO) 0.2 % (0.0-2.0); EOSINOPHILS # (AUTO) 0.01 K/uL (0.00-0.70); EOSINOPHILS % (AUTO) 0.05 % (1.0-6.0); HEMATOCRIT 29.5 % (41-53); HEMOGLOBIN 9.5 g/dL (13.5-17.5); LYMPHOCYTES # (AUTO) 0.4 K/uL (1.0-4.8); LYMPHOCYTES % (AUTO) 4.1 % (22.0-44.0); MEAN CORPUSCULAR HGB CONC 32.1 G/dL (31.0-37.0); MEAN CORPUSCULAR VOLUME 90 fL (80-100); MONOCYTES # (AUTO) 0.2 K/uL (0.1-1.0); NEUTROPHILS # (AUTO) 9.8 K/uL (1.8-7.7); PLATELET COUNT (AUTO) 238 K/uL (150-450); RED BLOOD CELL COUNT(AUTO) 3.27 MIL/uL (4.50-5.90); RED CELL DISTRIBUTION WIDTH 14.1 % (11.5-14.5); WHITE BLOOD COUNT (AUTO) 10.4 K/uL (4.5-11.0)
[2017-02-13] MEDS: PROPOFOL 1000 MG/ISO-OSM 100 ML IV PRN ×5 (06:01→23:41)
[2017-02-13 06:05] LABS: ALANINE AMINOTRANSFERASE 69 U/L (12-78); ANION GAP 8 mmol/L (8-16); ASPARTATE AMINOTRANSFERASE 29 U/L (15-37); BILIRUBIN,TOTAL 0.4 mg/dL (0.1-1.0); CALCIUM, TOTAL 7.7 mg/dL (8.8-10.5); CARBON DIOXIDE 32 mmol/L (22-29); CHLORIDE 102 mmol/L (98-107); CREATININE 0.68 mg/dL (0.60-1.30); GLOMERULAR FILTR. RATE CALC > 60 mL/min (>60); POTASSIUM 3.7 mmol/L (3.5-5.1); SODIUM SERUM 142 mmol/L (136-145); TOTAL PROTEIN, SERUM 6.4 g/dL (6.4-8.2); UREA NITROGEN, BLOOD 40 mg/dL (7-18)
[2017-02-13 07:17] LABS: NEUTROPHILS % (AUTO) 93.7 % (40.0-70.0)
[2017-02-13] MEDS: VANCOMYCIN HCL 1 GM/D5% WATER 200 ML IV SCH ×2 (07:34→20:02)
[2017-02-13] MEDS: HEPARIN SODIUM,PORCINE 5,000 UNITS/ML VIAL SQ SCH ×3 (07:35→23:41)
[2017-02-13] MEDS: IPRATROPIUM BROMIDE 0.5 MG/2.5 ML NEB SOLUTION NEB PRN ×2 (08:21→20:49)
[2017-02-13] MEDS: ALBUTEROL SULFATE 2.5 MG/0.5 ML NEB SOLUTION NEB PRN ×3 (08:21→20:49)
[2017-02-13] MEDS: ACETYLCYSTEINE 20% 200 MG/ML 4 ML NEB SOLUTION NEB SCH ×3 (08:21→20:55)
[2017-02-13] MEDS: BUDESONIDE 0.5 MG/2 ML NEB SOLUTION NEB SCH ×2 (08:21→20:49)
[2017-02-13] MEDS: DOCUSATE SODIUM 100 MG CAPSULE PO SCH ×2 (09:00→21:09)
[2017-02-13] MEDS: SODIUM CHLORIDE 0.9% 1,000 ML IV SCH (09:30)
[2017-02-13] MEDS: ASPIRIN 81 MG CHEWABLE TABLET PO SCH (09:31)
[2017-02-13] MEDS: BusPIRone HCL 5 MG TABLET PO SCH ×2 (09:31→21:09)
[2017-02-13] MEDS: PANTOPRAZOLE SODIUM 40 MG/VIAL IVP SCH (09:40)
[2017-02-13 10:03] LABS: PROTHROMBIN TIME 10.9 SEC (9.4-11.6)
[2017-02-13] MEDS: SIMVASTATIN 40 MG TABLET PO SCH (21:09)
[2017-02-13] MEDS: LORazepam 0.5 MG TABLET PO SCH (21:09)
[2017-02-13] MEDS ORDERED: SODIUM CHLORIDE 0.9% 250 ML IV ONE (22:54)
[2017-02-13] MEDS: MORPHINE SULFATE 2 MG/ML SYRINGE IVP PRN (23:42)
[2017-02-14] VITALS (11 sets, daily range): BP systolic 114–153; BP diastolic 64–82
[2017-02-14] MEDS: SODIUM CHLORIDE 0.9% 1,000 ML IV SCH ×2 (00:36→13:25)
[2017-02-14] MEDS: ALBUMIN HUMAN 25%-12.5GM/50ML 50 ML IV SCH ×3 (02:18→17:17)
[2017-02-14] MEDS: PIPERACILLIN/TAZO 3.375 GM/D5W 50 ML IV SCH ×3 (04:53→16:06)
[2017-02-14 05:33] LABS: BASOPHILS % (AUTO) 0.1 % (0.0-2.0); EOSINOPHILS % (AUTO) 0 % (1.0-6.0); HEMOGLOBIN 9.4 g/dL (13.5-17.5); LYMPHOCYTES # (AUTO) 0.4 K/uL (1.0-4.8); LYMPHOCYTES % (AUTO) 3.8 % (22.0-44.0); MEAN CORPUSCULAR HEMOGLOBIN 27.7 pg (26.0-34.0); MEAN CORPUSCULAR HGB CONC 31.3 G/dL (31.0-37.0); MEAN CORPUSCULAR VOLUME 89 fL (80-100); MONOCYTES # (AUTO) 0.4 K/uL (0.1-1.0); NEUTROPHILS # (AUTO) 9.1 K/uL (1.8-7.7); PLATELET COUNT (AUTO) 216 K/uL (150-450); RED BLOOD CELL COUNT(AUTO) 3.38 MIL/uL (4.50-5.90); RED CELL DISTRIBUTION WIDTH 14.1 % (11.5-14.5); WHITE BLOOD COUNT (AUTO) 9.9 K/uL (4.5-11.0)
[2017-02-14] MEDS: MethylPREDNISolone SOD SUCC 125 MG/2 ML VIAL IVP SCH ×3 (05:35→17:17)
[2017-02-14 05:37] LABS: NEUTROPHILS % (AUTO) 92.1 % (40.0-70.0)
[2017-02-14 05:49] LABS: ALANINE AMINOTRANSFERASE 55 U/L (12-78); ALBUMIN 3.1 g/dL (3.4-5.0); ANION GAP 6 mmol/L (8-16); ASPARTATE AMINOTRANSFERASE 21 U/L (15-37); BILIRUBIN,TOTAL 0.5 mg/dL (0.1-1.0); CALCIUM, TOTAL 7.4 mg/dL (8.8-10.5); CARBON DIOXIDE 33 mmol/L (22-29); CHLORIDE 101 mmol/L (98-107); CREATININE 0.65 mg/dL (0.60-1.30); GLOMERULAR FILTR. RATE CALC > 60 mL/min (>60); POTASSIUM 3.2 mmol/L (3.5-5.1); SODIUM SERUM 140 mmol/L (136-145); TOTAL PROTEIN, SERUM 5.8 g/dL (6.4-8.2); UREA NITROGEN, BLOOD 29 mg/dL (7-18)
[2017-02-14] MEDS: BusPIRone HCL 5 MG TABLET PO SCH ×2 (08:38→20:43)
[2017-02-14] MEDS: ASPIRIN 81 MG CHEWABLE TABLET PO SCH (08:38)
[2017-02-14] MEDS: PANTOPRAZOLE SODIUM 40 MG/VIAL IVP SCH (08:39)
[2017-02-14] MEDS: HEPARIN SODIUM,PORCINE 5,000 UNITS/ML VIAL SQ SCH ×2 (08:39→15:24)
[2017-02-14] MEDS: DOCUSATE SODIUM 100 MG CAPSULE PO SCH ×2 (08:40→20:43)
[2017-02-14] MEDS: VANCOMYCIN HCL 1 GM/D5% WATER 200 ML IV SCH ×2 (08:40→20:42)
[2017-02-14] MEDS: BUDESONIDE 0.5 MG/2 ML NEB SOLUTION NEB SCH ×2 (09:40→21:00)
[2017-02-14] MEDS: IPRATROPIUM BROMIDE 0.5 MG/2.5 ML NEB SOLUTION NEB PRN ×2 (09:56→15:58)
[2017-02-14] MEDS: ALBUTEROL SULFATE 2.5 MG/0.5 ML NEB SOLUTION NEB PRN ×3 (09:56→21:00)
[2017-02-14] MEDS: ACETYLCYSTEINE 20% 200 MG/ML 4 ML NEB SOLUTION NEB SCH ×3 (09:56→21:05)
[2017-02-14] MEDS: PROPOFOL 1000 MG/ISO-OSM 100 ML IV PRN ×3 (11:16→20:42)
[2017-02-14] MEDS: POTASSIUM CHL 10 MEQ/WATER 50 ML IV SCH ×4 (15:23→18:41)
[2017-02-14] MEDS: SIMVASTATIN 40 MG TABLET PO SCH (20:42)
[2017-02-14] MEDS: LORazepam 0.5 MG TABLET PO SCH (20:42)
[2017-02-14] MEDS: MORPHINE SULFATE 2 MG/ML SYRINGE IVP PRN (21:50)
[2017-02-14] MEDS ORDERED: SODIUM CHLORIDE 0.9% 250 ML IV ONE (22:42)
[2017-02-15] VITALS: BP 145/76
[2017-02-15] MEDS: HEPARIN SODIUM,PORCINE 5,000 UNITS/ML VIAL SQ SCH ×4 (00:16→23:26)
[2017-02-15] MEDS: MethylPREDNISolone SOD SUCC 125 MG/2 ML VIAL IVP SCH ×5 (00:16→23:26)
[2017-02-15] MEDS: PIPERACILLIN/TAZO 3.375 GM/D5W 50 ML IV SCH ×5 (00:17→23:26)
[2017-02-15] MEDS: PROPOFOL 1000 MG/ISO-OSM 100 ML IV PRN ×6 (00:17→20:20)
[2017-02-15] MEDS: ALBUMIN HUMAN 25%-12.5GM/50ML 50 ML IV SCH ×3 (02:44→18:09)
[2017-02-15 04:00] VITALS: BP 129/76
[2017-02-15] MEDS: SODIUM CHLORIDE 0.9% 1,000 ML IV SCH ×2 (05:21→18:34)
[2017-02-15 06:29] LABS: ALBUMIN 3.2 g/dL (3.4-5.0); ANION GAP 7 mmol/L (8-16); BILIRUBIN,TOTAL 0.7 mg/dL (0.1-1.0); CALCIUM, TOTAL 6.9 mg/dL (8.8-10.5); CARBON DIOXIDE 31 mmol/L (22-29); CHLORIDE 102 mmol/L (98-107); GLOMERULAR FILTR. RATE CALC > 60 mL/min (>60); POTASSIUM 3.7 mmol/L (3.5-5.1); SODIUM SERUM 140 mmol/L (136-145); TOTAL PROTEIN, SERUM 5.7 g/dL (6.4-8.2); UREA NITROGEN, BLOOD 20 mg/dL (7-18)
[2017-02-15] MEDS: BUDESONIDE 0.5 MG/2 ML NEB SOLUTION NEB SCH ×2 (07:42→19:21)
[2017-02-15] MEDS: ACETYLCYSTEINE 20% 200 MG/ML 4 ML NEB SOLUTION NEB SCH ×3 (07:42→20:36)
[2017-02-15 07:48] LABS: EOSINOPHILS # (AUTO) 0.01 K/uL (0.00-0.70); EOSINOPHILS % (AUTO) 0.05 % (1.0-6.0); HEMATOCRIT 30.3 % (41-53); LYMPHOCYTES # (AUTO) 0.3 K/uL (1.0-4.8); LYMPHOCYTES % (AUTO) 2.5 % (22.0-44.0); MEAN CORPUSCULAR HEMOGLOBIN 29.4 pg (26.0-34.0); MEAN CORPUSCULAR VOLUME 89 fL (80-100); MONOCYTES # (AUTO) 0.4 K/uL (0.1-1.0); NEUTROPHILS # (AUTO) 11.1 K/uL (1.8-7.7); PLATELET COUNT (AUTO) 223 K/uL (150-450); RED BLOOD CELL COUNT(AUTO) 3.41 MIL/uL (4.50-5.90); WHITE BLOOD COUNT (AUTO) 11.8 K/uL (4.5-11.0)
[2017-02-15 07:50] LABS: NEUTROPHILS % (AUTO) 94.4 % (40.0-70.0)
[2017-02-15 08:00] VITALS: BP 138/74
[2017-02-15 08:20] LABS: ALLEN TEST, BLOOD GAS Positive; TEMPERATURE, FAHRENHEIT, BG 98.6 FAHREN (96.0-98.6)
[2017-02-15 08:21] LABS: ABG BASE EXCESS 1.6 mmol/L (-2.0-3.0); ABG HCO3 25.6 mmol/L (22.0-26.0); ABG OXYHEMOGLOBIN 97.2 % (94.0-100.0); ABG PCO2 46 mmHg (35-45); ABG PH 7.385 (7.35-7.450)
[2017-02-15 08:22] LABS: ABG A-A DIFF O2 123.3 mmHg (10-20.0)
[2017-02-15 08:23] LABS: INSIPIRATORY PRESSURE, BG 32 cm H2O
[2017-02-15 09:03] LABS: ASPARTATE AMINOTRANSFERASE 13 U/L (15-37)
[2017-02-15 09:04] LABS: ALANINE AMINOTRANSFERASE 43 U/L (12-78)
[2017-02-15] MEDS: PANTOPRAZOLE SODIUM 40 MG/VIAL IVP SCH (10:09)
[2017-02-15] MEDS: VANCOMYCIN HCL 1.25 GM in DEXTROSE 5%-WATER 250 ML IV SCH ×2 (10:09→20:19)
[2017-02-15] MEDS: DOCUSATE SODIUM 100 MG CAPSULE PO SCH ×2 (10:09→20:19)
[2017-02-15] MEDS: ASPIRIN 81 MG CHEWABLE TABLET PO SCH (10:10)
[2017-02-15] MEDS: BusPIRone HCL 5 MG TABLET PO SCH ×2 (10:10→20:19)
[2017-02-15 12:00] VITALS: BP 123/72
[2017-02-15 16:00] VITALS: BP 116/69
[2017-02-15] MEDS ORDERED: DEXTROSE 50%-WATER 25 GM/50 ML SYRINGE IVP PRN (17:30)
[2017-02-15] MEDS: INSULIN REGULAR, HUMAN 100 UNITS/ML SQ PRN ×2 (18:39→23:45)
[2017-02-15 18:57] LABS: GLUCOSE,POINT OF CARE 141 MG/DL (70-110)
[2017-02-15 20:00] VITALS: BP 150/80
[2017-02-15] MEDS ORDERED: SODIUM CHLORIDE 0.9% 250 ML IV ONE (20:16)
[2017-02-15] MEDS: LORazepam 0.5 MG TABLET PO SCH (20:19)
[2017-02-15] MEDS: SIMVASTATIN 40 MG TABLET PO SCH (20:19)
[2017-02-15] MEDS: IPRATROPIUM BROMIDE 0.5 MG/2.5 ML NEB SOLUTION NEB PRN (20:36)
[2017-02-15] MEDS: ALBUTEROL SULFATE 2.5 MG/0.5 ML NEB SOLUTION NEB PRN (20:36)
[2017-02-16] VITALS (9 sets, daily range): BP systolic 108–160; BP diastolic 66–80
[2017-02-16] MEDS: PROPOFOL 1000 MG/ISO-OSM 100 ML IV PRN ×4 (00:23→20:26)
[2017-02-16] MEDS: ALBUMIN HUMAN 25%-12.5GM/50ML 50 ML IV SCH ×3 (02:06→17:55)
[2017-02-16] MEDS: LORazepam 2 MG/ML VIAL IVP PRN ×2 (02:10→23:28)
[2017-02-16] MEDS: MethylPREDNISolone SOD SUCC 125 MG/2 ML VIAL IVP SCH ×4 (04:53→23:27)
[2017-02-16] MEDS: PIPERACILLIN/TAZO 3.375 GM/D5W 50 ML IV SCH ×4 (04:53→23:28)
[2017-02-16] MEDS: INSULIN REGULAR, HUMAN 100 UNITS/ML SQ PRN ×3 (05:13→23:29)
[2017-02-16 05:36] LABS: HEMATOCRIT 32.1 % (41-53); HEMOGLOBIN 10.3 g/dL (13.5-17.5); MEAN CORPUSCULAR HEMOGLOBIN 28.9 pg (26.0-34.0); MEAN CORPUSCULAR HGB CONC 32.2 G/dL (31.0-37.0); MEAN CORPUSCULAR VOLUME 90 fL (80-100); PLATELET COUNT (AUTO) 212 K/uL (150-450); RED BLOOD CELL COUNT(AUTO) 3.57 MIL/uL (4.50-5.90); RED CELL DISTRIBUTION WIDTH 14.7 % (11.5-14.5)
[2017-02-16 05:58] LABS: ALBUMIN 3.1 g/dL (3.4-5.0); ANION GAP 6 mmol/L (8-16); BILIRUBIN,TOTAL 0.8 mg/dL (0.1-1.0); CALCIUM, TOTAL 6.9 mg/dL (8.8-10.5); CARBON DIOXIDE 32 mmol/L (22-29); CHLORIDE 103 mmol/L (98-107); CREATININE 0.65 mg/dL (0.60-1.30); GLOMERULAR FILTR. RATE CALC > 60 mL/min (>60); POTASSIUM 3.7 mmol/L (3.5-5.1); SODIUM SERUM 141 mmol/L (136-145); TOTAL PROTEIN, SERUM 5.5 g/dL (6.4-8.2); UREA NITROGEN, BLOOD 18 mg/dL (7-18)
[2017-02-16 06:57] LABS: BAND NEUTROPHILS % (MANUAL) 3 % (1-5); LYMPHOCYTES % (MANUAL) 6 % (22-44); MYELOCYTES % 1 % (0-0); REACTIVE LYMPHOCYTES 1 % (0-0); TOTAL CELLS COUNTED 100
[2017-02-16 07:00] LABS: ALANINE AMINOTRANSFERASE 37 U/L (12-78); ASPARTATE AMINOTRANSFERASE 18 U/L (15-37)
[2017-02-16 07:02] LABS: GLUCOSE COMMENT 1 Received Meds; GLUCOSE,POINT OF CARE 162 MG/DL (70-110)
[2017-02-16 07:02] LABS: GLUCOSE COMMENT 1 Received Meds; GLUCOSE,POINT OF CARE 145 MG/DL (70-110)
[2017-02-16] MEDS: VANCOMYCIN HCL 1.25 GM in DEXTROSE 5%-WATER 250 ML IV SCH ×2 (08:37→20:25)
[2017-02-16] MEDS: DOCUSATE SODIUM 100 MG CAPSULE PO SCH ×2 (08:38→20:26)
[2017-02-16] MEDS: PANTOPRAZOLE SODIUM 40 MG/VIAL IVP SCH (08:38)
[2017-02-16] MEDS: ASPIRIN 81 MG CHEWABLE TABLET PO SCH (08:38)
[2017-02-16] MEDS: HEPARIN SODIUM,PORCINE 5,000 UNITS/ML VIAL SQ SCH ×3 (08:38→23:27)
[2017-02-16] MEDS: ALBUTEROL SULFATE 2.5 MG/0.5 ML NEB SOLUTION NEB PRN ×3 (08:39→21:51)
[2017-02-16] MEDS: ACETYLCYSTEINE 20% 200 MG/ML 4 ML NEB SOLUTION NEB SCH ×3 (08:39→21:51)
[2017-02-16] MEDS: BUDESONIDE 0.5 MG/2 ML NEB SOLUTION NEB SCH ×2 (08:39→19:12)
[2017-02-16] MEDS: BusPIRone HCL 5 MG TABLET PO SCH ×2 (08:40→20:26)
[2017-02-16 09:43] LABS: ABG A-A DIFF O2 144.3 mmHg (10-20.0); ABG BASE EXCESS 4.4 mmol/L (-2.0-3.0); ABG OXYHEMOGLOBIN 96.1 % (94.0-100.0); ABG PCO2 42 mmHg (35-45); ABG PH 7.448 (7.35-7.450); ALLEN TEST, BLOOD GAS Positive; TEMPERATURE, FAHRENHEIT, BG 97.9 FAHREN (96.0-98.6)
[2017-02-16] MEDS: SODIUM CHLORIDE 0.9% 1,000 ML IV SCH (12:30)
[2017-02-16] MEDS: MORPHINE SULFATE 2 MG/ML SYRINGE IVP PRN ×2 (14:22→20:27)
[2017-02-16 16:17] LABS: GLUCOSE COMMENT 1 Received Meds; GLUCOSE,POINT OF CARE 161 MG/DL (70-110)
[2017-02-16 19:12] LABS: GLUCOSE,POINT OF CARE 131 MG/DL (70-110)
[2017-02-16] MEDS ORDERED: SODIUM CHLORIDE 0.9% 250 ML IV ONE (20:21)
[2017-02-16] MEDS: SIMVASTATIN 40 MG TABLET PO SCH (20:26)
[2017-02-16] MEDS: LORazepam 0.5 MG TABLET PO SCH (20:26)
[2017-02-16] MEDS: IPRATROPIUM BROMIDE 0.5 MG/2.5 ML NEB SOLUTION NEB PRN (21:51)
[2017-02-17] VITALS: BP 106/67
[2017-02-17] MEDS: PROPOFOL 1000 MG/ISO-OSM 100 ML IV PRN ×6 (00:49→21:58)
[2017-02-17] MEDS: ALBUMIN HUMAN 25%-12.5GM/50ML 50 ML IV SCH ×3 (02:28→17:17)
[2017-02-17] MEDS: SODIUM CHLORIDE 0.9% 1,000 ML IV SCH ×2 (02:29→16:30)
[2017-02-17 03:02] LABS: GLUCOSE COMMENT 1 Received Meds; GLUCOSE,POINT OF CARE 165 MG/DL (70-110)
[2017-02-17 04:00] VITALS: BP 135/73
[2017-02-17] MEDS: INSULIN REGULAR, HUMAN 100 UNITS/ML SQ PRN (05:09)
[2017-02-17] MEDS: MethylPREDNISolone SOD SUCC 125 MG/2 ML VIAL IVP SCH ×3 (05:10→17:17)
[2017-02-17] MEDS: PIPERACILLIN/TAZO 3.375 GM/D5W 50 ML IV SCH ×4 (05:11→23:19)
[2017-02-17 06:33] LABS: ALANINE AMINOTRANSFERASE 36 U/L (12-78); ALBUMIN 3.4 g/dL (3.4-5.0); ANION GAP 7 mmol/L (8-16); ASPARTATE AMINOTRANSFERASE 22 U/L (15-37); BILIRUBIN,TOTAL 0.5 mg/dL (0.1-1.0); CALCIUM, TOTAL 7.6 mg/dL (8.8-10.5); CARBON DIOXIDE 31 mmol/L (22-29); CHLORIDE 104 mmol/L (98-107); CREATININE 0.56 mg/dL (0.60-1.30); GLOMERULAR FILTR. RATE CALC > 60 mL/min (>60); SODIUM SERUM 142 mmol/L (136-145); TOTAL PROTEIN, SERUM 5.6 g/dL (6.4-8.2); UREA NITROGEN, BLOOD 20 mg/dL (7-18)
[2017-02-17 06:38] LABS: HEMATOCRIT 33.6 % (41-53); HEMOGLOBIN 10.5 g/dL (13.5-17.5); MEAN CORPUSCULAR HGB CONC 31.3 G/dL (31.0-37.0); MEAN CORPUSCULAR VOLUME 89 fL (80-100); PLATELET COUNT (AUTO) 186 K/uL (150-450); RED BLOOD CELL COUNT(AUTO) 3.76 MIL/uL (4.50-5.90); RED CELL DISTRIBUTION WIDTH 14.3 % (11.5-14.5); WHITE BLOOD COUNT (AUTO) 17.7 K/uL (4.5-11.0)
[2017-02-17 06:47] LABS: GLUCOSE COMMENT 1 Received Meds; GLUCOSE,POINT OF CARE 171 MG/DL (70-110)
[2017-02-17] MEDS: HEPARIN SODIUM,PORCINE 5,000 UNITS/ML VIAL SQ SCH ×2 (07:48→16:18)
[2017-02-17] MEDS: LORazepam 2 MG/ML VIAL IVP PRN ×2 (07:48→21:57)
[2017-02-17] MEDS: VANCOMYCIN HCL 1.25 GM in DEXTROSE 5%-WATER 250 ML IV SCH ×2 (07:49→20:08)
[2017-02-17 08:00] VITALS: BP 132/73
[2017-02-17] MEDS: DOCUSATE SODIUM 100 MG CAPSULE PO SCH ×2 (08:01→20:09)
[2017-02-17] MEDS: BusPIRone HCL 5 MG TABLET PO SCH ×2 (08:01→20:08)
[2017-02-17] MEDS: ASPIRIN 81 MG CHEWABLE TABLET PO SCH (08:02)
[2017-02-17] MEDS: PANTOPRAZOLE SODIUM 40 MG/VIAL IVP SCH (08:02)
[2017-02-17 08:53] LABS: BAND NEUTROPHILS % (MANUAL) 4 % (1-5); LYMPHOCYTES % (MANUAL) 5 % (22-44); TOTAL CELLS COUNTED 100
[2017-02-17 08:54] LABS: RBC MORPHOLOGY COMMENT NORMAL RBC MORPH
[2017-02-17] MEDS: IPRATROPIUM BROMIDE 0.5 MG/2.5 ML NEB SOLUTION NEB PRN ×3 (09:54→21:25)
[2017-02-17] MEDS: ACETYLCYSTEINE 20% 200 MG/ML 4 ML NEB SOLUTION NEB SCH ×3 (09:54→21:25)
[2017-02-17] MEDS: BUDESONIDE 0.5 MG/2 ML NEB SOLUTION NEB SCH ×2 (09:54→21:34)
[2017-02-17] MEDS: ALBUTEROL SULFATE 2.5 MG/0.5 ML NEB SOLUTION NEB PRN ×3 (09:54→21:25)
[2017-02-17 10:12] LABS: ABG A-A DIFF O2 94.2 mmHg (10-20.0); ABG OXYHEMOGLOBIN 95.9 % (94.0-100.0); ABG PCO2 37 mmHg (35-45); ABG PH 7.478 (7.35-7.450); TEMPERATURE, FAHRENHEIT, BG 96.8 FAHREN (96.0-98.6)
[2017-02-17 10:13] LABS: ALLEN TEST, BLOOD GAS Positive
[2017-02-17 12:00] VITALS: BP 119/66
[2017-02-17 16:00] VITALS: BP 116/71
[2017-02-17 18:12] LABS: GLUCOSE,POINT OF CARE 124 MG/DL (70-110)
[2017-02-17 18:12] LABS: GLUCOSE,POINT OF CARE 133 MG/DL (70-110)
[2017-02-17 20:00] VITALS: BP 146/73
[2017-02-17] MEDS: LORazepam 0.5 MG TABLET PO SCH (20:08)
[2017-02-17] MEDS: SIMVASTATIN 40 MG TABLET PO SCH (20:09)
[2017-02-17] MEDS ORDERED: SODIUM CHLORIDE 0.9% 250 ML IV ONE (23:16)
[2017-02-18] VITALS: BP 152/78
[2017-02-18] MEDS: HEPARIN SODIUM,PORCINE 5,000 UNITS/ML VIAL SQ SCH ×3 (00:37→16:46)
[2017-02-18] MEDS: INSULIN REGULAR, HUMAN 100 UNITS/ML SQ PRN ×3 (00:38→18:05)
[2017-02-18] MEDS: MethylPREDNISolone SOD SUCC 125 MG/2 ML VIAL IVP SCH ×4 (00:38→18:04)
[2017-02-18] MEDS: ALBUMIN HUMAN 25%-12.5GM/50ML 50 ML IV SCH ×3 (01:19→18:04)
[2017-02-18] MEDS: LORazepam 2 MG/ML VIAL IVP PRN ×4 (01:58→22:52)
[2017-02-18] MEDS: PROPOFOL 1000 MG/ISO-OSM 100 ML IV PRN ×7 (01:59→22:54)
[2017-02-18 03:07] LABS: GLUCOSE COMMENT 1 Received Meds; GLUCOSE,POINT OF CARE 153 MG/DL (70-110)
[2017-02-18 04:00] VITALS: BP 116/68
[2017-02-18] MEDS: PIPERACILLIN/TAZO 3.375 GM/D5W 50 ML IV SCH ×4 (04:54→22:52)
[2017-02-18] MEDS: SODIUM CHLORIDE 0.9% 1,000 ML IV SCH ×2 (05:25→18:28)
[2017-02-18 06:17] LABS: ANION GAP 9 mmol/L (8-16); CALCIUM, TOTAL 7.5 mg/dL (8.8-10.5); CARBON DIOXIDE 28 mmol/L (22-29); CHLORIDE 106 mmol/L (98-107); CREATININE 0.59 mg/dL (0.60-1.30); GLOMERULAR FILTR. RATE CALC > 60 mL/min (>60); POTASSIUM 3.5 mmol/L (3.5-5.1); SODIUM SERUM 143 mmol/L (136-145); UREA NITROGEN, BLOOD 21 mg/dL (7-18)
[2017-02-18 07:17] LABS: GLUCOSE,POINT OF CARE 156 MG/DL (70-110)
[2017-02-18 08:00] VITALS: BP 138/73
[2017-02-18] MEDS: VANCOMYCIN HCL 1.25 GM in DEXTROSE 5%-WATER 250 ML IV SCH ×2 (08:02→20:37)
[2017-02-18] MEDS: DOCUSATE SODIUM 100 MG CAPSULE PO SCH ×2 (08:02→20:37)
[2017-02-18] MEDS: BusPIRone HCL 5 MG TABLET PO SCH ×2 (08:02→20:38)
[2017-02-18] MEDS: PANTOPRAZOLE SODIUM 40 MG/VIAL IVP SCH (08:02)
[2017-02-18] MEDS: ASPIRIN 81 MG CHEWABLE TABLET PO SCH (08:03)
[2017-02-18] MEDS: BUDESONIDE 0.5 MG/2 ML NEB SOLUTION NEB SCH ×2 (09:33→20:44)
[2017-02-18] MEDS: IPRATROPIUM BROMIDE 0.5 MG/2.5 ML NEB SOLUTION NEB PRN ×3 (09:54→20:44)
[2017-02-18] MEDS: ACETYLCYSTEINE 20% 200 MG/ML 4 ML NEB SOLUTION NEB SCH ×3 (09:54→20:44)
[2017-02-18] MEDS: ALBUTEROL SULFATE 2.5 MG/0.5 ML NEB SOLUTION NEB PRN ×3 (09:54→20:44)
[2017-02-18] MEDS: HYDROCODONE/ACETAMINOPHEN 5-325 MG TABLET PO PRN (10:48)
[2017-02-18 11:52] LABS: GLUCOSE COMMENT 1 Received Meds; GLUCOSE,POINT OF CARE 144 MG/DL (70-110)
[2017-02-18 12:00] VITALS: BP 106/64
[2017-02-18 16:00] VITALS: BP 125/68
[2017-02-18 17:01] LABS: ABG A-A DIFF O2 95.6 mmHg (10-20.0); ABG BASE EXCESS 2.5 mmol/L (-2.0-3.0); ABG HCO3 26.6 mmol/L (22.0-26.0); ABG OXYHEMOGLOBIN 93.4 % (94.0-100.0); ABG PCO2 39 mmHg (35-45); ABG PH 7.452 (7.35-7.450); ALLEN TEST, BLOOD GAS Positive; TEMPERATURE, FAHRENHEIT, BG 98.6 FAHREN (96.0-98.6)
[2017-02-18 17:02] LABS: INSIPIRATORY PRESSURE, BG 30 cm H2O
[2017-02-18 18:07] LABS: GLUCOSE COMMENT 1 Received Meds; GLUCOSE,POINT OF CARE 146 MG/DL (70-110)
[2017-02-18 20:00] VITALS: BP 118/68
[2017-02-18] MEDS: SIMVASTATIN 40 MG TABLET PO SCH (20:37)
[2017-02-18] MEDS: LORazepam 0.5 MG TABLET PO SCH (20:37)
[2017-02-19] VITALS: BP 121/72
[2017-02-19] MEDS: MethylPREDNISolone SOD SUCC 125 MG/2 ML VIAL IVP SCH ×4 (00:22→18:00)
[2017-02-19] MEDS: HEPARIN SODIUM,PORCINE 5,000 UNITS/ML VIAL SQ SCH ×3 (00:23→15:22)
[2017-02-19] MEDS: INSULIN REGULAR, HUMAN 100 UNITS/ML SQ PRN ×2 (00:24→11:52)
[2017-02-19] MEDS: PROPOFOL 1000 MG/ISO-OSM 100 ML IV PRN ×6 (02:04→21:32)
[2017-02-19] MEDS: ALBUMIN HUMAN 25%-12.5GM/50ML 50 ML IV SCH ×3 (02:21→18:00)
[2017-02-19 03:12] LABS: GLUCOSE COMMENT 1 Received Meds; GLUCOSE,POINT OF CARE 153 MG/DL (70-110)
[2017-02-19 04:00] VITALS: BP 150/78
[2017-02-19] MEDS ORDERED: SODIUM CHLORIDE 0.9% 250 ML IV ONE (04:52)
[2017-02-19] MEDS: PIPERACILLIN/TAZO 3.375 GM/D5W 50 ML IV SCH ×3 (05:06→17:00)
[2017-02-19 05:16] LABS: GLUCOSE,POINT OF CARE 119 MG/DL (70-110)
[2017-02-19 05:35] LABS: ANION GAP 6 mmol/L (8-16); CALCIUM, TOTAL 6.6 mg/dL (8.8-10.5); CARBON DIOXIDE 30 mmol/L (22-29); CHLORIDE 105 mmol/L (98-107); CREATININE 0.62 mg/dL (0.60-1.30); GLOMERULAR FILTR. RATE CALC > 60 mL/min (>60); POTASSIUM 3.4 mmol/L (3.5-5.1); SODIUM SERUM 141 mmol/L (136-145)
[2017-02-19 06:26] LABS: UREA NITROGEN, BLOOD 20 mg/dL (7-18)
[2017-02-19 06:30] LABS: EOSINOPHILS % (AUTO) 0 % (1.0-6.0); HEMATOCRIT 28.9 % (41-53); HEMOGLOBIN 9.3 g/dL (13.5-17.5); LYMPHOCYTES # (AUTO) 0.6 K/uL (1.0-4.8); LYMPHOCYTES % (AUTO) 2.6 % (22.0-44.0); MEAN CORPUSCULAR HEMOGLOBIN 28.6 pg (26.0-34.0); MEAN CORPUSCULAR HGB CONC 32.1 G/dL (31.0-37.0); MEAN CORPUSCULAR VOLUME 89 fL (80-100); MONOCYTES # (AUTO) 0.1 K/uL (0.1-1.0); MONOCYTES % (AUTO) 0.3 % (2.0-9.0); NEUTROPHILS # (AUTO) 22.5 K/uL (1.8-7.7); PLATELET COUNT (AUTO) 313 K/uL (150-450); RED BLOOD CELL COUNT(AUTO) 3.24 MIL/uL (4.50-5.90); RED CELL DISTRIBUTION WIDTH 14.8 % (11.5-14.5); WHITE BLOOD COUNT (AUTO) 23.2 K/uL (4.5-11.0)
[2017-02-19 06:47] LABS: NEUTROPHILS % (AUTO) 97.1 % (40.0-70.0); RBC MORPHOLOGY COMMENT NORMAL RBC MORPH
[2017-02-19] MEDS: BUDESONIDE 0.5 MG/2 ML NEB SOLUTION NEB SCH ×2 (07:56→21:11)
[2017-02-19] MEDS: ALBUTEROL SULFATE 2.5 MG/0.5 ML NEB SOLUTION NEB PRN ×3 (07:56→21:11)
[2017-02-19] MEDS: ACETYLCYSTEINE 20% 200 MG/ML 4 ML NEB SOLUTION NEB SCH ×3 (07:57→21:11)
[2017-02-19 08:00] VITALS: BP 142/73
[2017-02-19 08:17] LABS: ABG A-A DIFF O2 110.8 mmHg (10-20.0); ABG BASE EXCESS 3.2 mmol/L (-2.0-3.0); ABG HCO3 27.2 mmol/L (22.0-26.0); ABG OXYHEMOGLOBIN 96.5 % (94.0-100.0); ABG PCO2 40 mmHg (35-45); ABG PH 7.451 (7.35-7.450); TEMPERATURE, FAHRENHEIT, BG 98.6 FAHREN (96.0-98.6)
[2017-02-19 08:18] LABS: ALLEN TEST, BLOOD GAS Positive
[2017-02-19 08:19] LABS: INSIPIRATORY PRESSURE, BG 30 cm H2O
[2017-02-19] MEDS: VANCOMYCIN HCL 1.25 GM in DEXTROSE 5%-WATER 250 ML IV SCH ×2 (08:19→21:34)
[2017-02-19] MEDS: BusPIRone HCL 5 MG TABLET PO SCH ×2 (08:20→21:33)
[2017-02-19] MEDS: ASPIRIN 81 MG CHEWABLE TABLET PO SCH (08:20)
[2017-02-19] MEDS: LORazepam 2 MG/ML VIAL IVP PRN ×2 (08:20→14:00)
[2017-02-19] MEDS: PANTOPRAZOLE SODIUM 40 MG/VIAL IVP SCH (08:20)
[2017-02-19] MEDS: SODIUM CHLORIDE 0.9% 1,000 ML IV SCH ×2 (08:21→21:42)
[2017-02-19] MEDS: DOCUSATE SODIUM 100 MG CAPSULE PO SCH ×2 (08:21→21:33)
[2017-02-19 12:00] VITALS: BP 130/62
[2017-02-19 14:56] LABS: GLUCOSE COMMENT 1 Received Meds; GLUCOSE,POINT OF CARE 148 MG/DL (70-110)
[2017-02-19 16:00] VITALS: BP 121/67
[2017-02-19 20:00] VITALS: BP 125/69
[2017-02-19] MEDS: IPRATROPIUM BROMIDE 0.5 MG/2.5 ML NEB SOLUTION NEB PRN (21:11)
[2017-02-19] MEDS: SIMVASTATIN 40 MG TABLET PO SCH (21:33)
[2017-02-19] MEDS: LORazepam 0.5 MG TABLET PO SCH (21:33)
[2017-02-20] VITALS (10 sets, daily range): BP systolic 94–155; BP diastolic 51–87
[2017-02-20] MEDS: MethylPREDNISolone SOD SUCC 125 MG/2 ML VIAL IVP SCH ×5 (00:09→23:42)
[2017-02-20] MEDS: PIPERACILLIN/TAZO 3.375 GM/D5W 50 ML IV SCH ×5 (00:09→22:57)
[2017-02-20] MEDS: HEPARIN SODIUM,PORCINE 5,000 UNITS/ML VIAL SQ SCH ×4 (00:09→23:42)
[2017-02-20] MEDS: INSULIN REGULAR, HUMAN 100 UNITS/ML SQ PRN ×2 (00:10→11:31)
[2017-02-20] MEDS: PROPOFOL 1000 MG/ISO-OSM 100 ML IV PRN ×8 (00:19→21:21)
[2017-02-20 01:31] LABS: GLUCOSE,POINT OF CARE 164 MG/DL (70-110)
[2017-02-20] MEDS: ALBUMIN HUMAN 25%-12.5GM/50ML 50 ML IV SCH ×3 (01:46→17:29)
[2017-02-20 06:16] LABS: ANION GAP 7 mmol/L (8-16); CALCIUM, TOTAL 7.5 mg/dL (8.8-10.5); CARBON DIOXIDE 31 mmol/L (22-29); CHLORIDE 107 mmol/L (98-107); GLOMERULAR FILTR. RATE CALC > 60 mL/min (>60); POTASSIUM 3.7 mmol/L (3.5-5.1); SODIUM SERUM 145 mmol/L (136-145); UREA NITROGEN, BLOOD 23 mg/dL (7-18)
[2017-02-20] MEDS: ACETYLCYSTEINE 20% 200 MG/ML 4 ML NEB SOLUTION NEB SCH ×3 (07:27→21:21)
[2017-02-20] MEDS: BUDESONIDE 0.5 MG/2 ML NEB SOLUTION NEB SCH ×2 (07:27→19:46)
[2017-02-20] MEDS: IPRATROPIUM BROMIDE 0.5 MG/2.5 ML NEB SOLUTION NEB PRN ×3 (07:27→21:21)
[2017-02-20] MEDS: ALBUTEROL SULFATE 2.5 MG/0.5 ML NEB SOLUTION NEB PRN ×3 (07:27→21:21)
[2017-02-20] MEDS: PANTOPRAZOLE SODIUM 40 MG/VIAL IVP SCH (08:14)
[2017-02-20] MEDS: ASPIRIN 81 MG CHEWABLE TABLET PO SCH (08:14)
[2017-02-20] MEDS: DOCUSATE SODIUM 100 MG CAPSULE PO SCH ×2 (08:15→21:20)
[2017-02-20] MEDS: BusPIRone HCL 5 MG TABLET PO SCH ×2 (08:15→21:20)
[2017-02-20] MEDS: VANCOMYCIN HCL 1.25 GM in DEXTROSE 5%-WATER 250 ML IV SCH ×2 (08:54→20:05)
[2017-02-20 09:31] LABS: GLUCOSE,POINT OF CARE 132 MG/DL (70-110)
[2017-02-20] MEDS ORDERED: SODIUM CHLORIDE 0.9% 250 ML IV ONE (09:46)
[2017-02-20 10:46] LABS: ABG BASE EXCESS 4.3 mmol/L (-2.0-3.0); ABG HCO3 27.9 mmol/L (22.0-26.0); ABG OXYHEMOGLOBIN 93.8 % (94.0-100.0); ABG PCO2 42 mmHg (35-45); ABG PH 7.445 (7.35-7.450); TEMPERATURE, FAHRENHEIT, BG 98.7 FAHREN (96.0-98.6)
[2017-02-20 10:47] LABS: ALLEN TEST, BLOOD GAS Positive; INSIPIRATORY PRESSURE, BG 30 cm H2O
[2017-02-20] MEDS: MORPHINE SULFATE 2 MG/ML SYRINGE IVP PRN ×2 (14:23→23:44)
[2017-02-20 17:02] LABS: GLUCOSE COMMENT 1 Received Meds; GLUCOSE,POINT OF CARE 164 MG/DL (70-110)
[2017-02-20 17:02] LABS: GLUCOSE,POINT OF CARE 127 MG/DL (70-110)
[2017-02-20] MEDS: SIMVASTATIN 40 MG TABLET PO SCH (21:20)
[2017-02-20] MEDS: LORazepam 0.5 MG TABLET PO SCH (21:20)
[2017-02-21] VITALS (14 sets, daily range): BP systolic 112–163; BP diastolic 61–79
[2017-02-21] MEDS: ALBUMIN HUMAN 25%-12.5GM/50ML 50 ML IV SCH ×3 (01:30→17:25)
[2017-02-21] MEDS: PROPOFOL 1000 MG/ISO-OSM 100 ML IV PRN ×6 (01:30→19:52)
[2017-02-21 01:47] LABS: GLUCOSE,POINT OF CARE 120 MG/DL (70-110)
[2017-02-21 01:47] LABS: GLUCOSE,POINT OF CARE 136 MG/DL (70-110)
[2017-02-21] MEDS: LORazepam 2 MG/ML VIAL IVP PRN ×3 (02:49→23:59)
[2017-02-21 04:37] LABS: GLUCOSE,POINT OF CARE 120 MG/DL (70-110)
[2017-02-21] MEDS: PIPERACILLIN/TAZO 3.375 GM/D5W 50 ML IV SCH ×4 (05:15→22:49)
[2017-02-21] MEDS: MethylPREDNISolone SOD SUCC 125 MG/2 ML VIAL IVP SCH ×4 (05:15→23:58)
[2017-02-21] MEDS ORDERED: SODIUM CHLORIDE 0.9% 100 ML ONE (05:34)
[2017-02-21 06:18] LABS: ANION GAP 6 mmol/L (8-16); CALCIUM, TOTAL 6.9 mg/dL (8.8-10.5); CARBON DIOXIDE 32 mmol/L (22-29); CHLORIDE 103 mmol/L (98-107); CREATININE 0.63 mg/dL (0.60-1.30); GLOMERULAR FILTR. RATE CALC > 60 mL/min (>60); POTASSIUM 3.6 mmol/L (3.5-5.1); SODIUM SERUM 141 mmol/L (136-145); UREA NITROGEN, BLOOD 27 mg/dL (7-18)
[2017-02-21] MEDS: ALBUTEROL SULFATE 2.5 MG/0.5 ML NEB SOLUTION NEB PRN ×3 (07:47→21:23)
[2017-02-21] MEDS: BUDESONIDE 0.5 MG/2 ML NEB SOLUTION NEB SCH ×2 (07:47→21:23)
[2017-02-21] MEDS: ACETYLCYSTEINE 20% 200 MG/ML 4 ML NEB SOLUTION NEB SCH ×3 (07:48→21:23)
[2017-02-21 08:21] LABS: ABG A-A DIFF O2 97.5 mmHg (10-20.0); ABG BASE EXCESS 6.8 mmol/L (-2.0-3.0); ABG HCO3 29.8 mmol/L (22.0-26.0); ABG OXYHEMOGLOBIN 96.7 % (94.0-100.0); ABG PCO2 50 mmHg (35-45); ABG PH 7.419 (7.35-7.450); ALLEN TEST, BLOOD GAS Positive; TEMPERATURE, FAHRENHEIT, BG 98.6 FAHREN (96.0-98.6)
[2017-02-21 08:22] LABS: INSIPIRATORY PRESSURE, BG 30 cm H2O
[2017-02-21] MEDS: VANCOMYCIN HCL 1.25 GM in DEXTROSE 5%-WATER 250 ML IV SCH ×2 (08:23→19:52)
[2017-02-21] MEDS: HEPARIN SODIUM,PORCINE 5,000 UNITS/ML VIAL SQ SCH ×3 (08:32→23:58)
[2017-02-21] MEDS: PANTOPRAZOLE SODIUM 40 MG/VIAL IVP SCH (08:32)
[2017-02-21] MEDS: ASPIRIN 81 MG CHEWABLE TABLET PO SCH (08:33)
[2017-02-21] MEDS: BusPIRone HCL 5 MG TABLET PO SCH ×2 (08:33→21:05)
[2017-02-21] MEDS: DOCUSATE SODIUM 100 MG CAPSULE PO SCH ×2 (08:34→21:05)
[2017-02-21 12:08] LABS: GLUCOSE,POINT OF CARE 145 MG/DL (70-110)
[2017-02-21] MEDS: INSULIN REGULAR, HUMAN 100 UNITS/ML SQ PRN ×2 (12:08→18:23)
[2017-02-21] MEDS ORDERED: SODIUM CHLORIDE 0.9% 250 ML IV ONE (16:53)
[2017-02-21 18:12] LABS: GLUCOSE,POINT OF CARE 125 MG/DL (70-110)
[2017-02-21] MEDS: MORPHINE SULFATE 2 MG/ML SYRINGE IVP PRN (19:59)
[2017-02-21] MEDS: LORazepam 0.5 MG TABLET PO SCH (21:04)
[2017-02-21] MEDS: SIMVASTATIN 40 MG TABLET PO SCH (21:05)
[2017-02-22] VITALS (13 sets, daily range): BP systolic 124–173; BP diastolic 64–93
[2017-02-22] MEDS: INSULIN REGULAR, HUMAN 100 UNITS/ML SQ PRN ×2 (00:01→18:51)
[2017-02-22] MEDS: PROPOFOL 1000 MG/ISO-OSM 100 ML IV PRN ×7 (00:36→23:44)
[2017-02-22] MEDS: ALBUMIN HUMAN 25%-12.5GM/50ML 50 ML IV SCH ×3 (01:57→17:31)
[2017-02-22 04:57] LABS: ANION GAP 5 mmol/L (8-16); CALCIUM, TOTAL 7.7 mg/dL (8.8-10.5); CARBON DIOXIDE 34 mmol/L (22-29); CHLORIDE 103 mmol/L (98-107); CREATININE 0.56 mg/dL (0.60-1.30); GLOMERULAR FILTR. RATE CALC > 60 mL/min (>60); POTASSIUM 3.8 mmol/L (3.5-5.1); SODIUM SERUM 142 mmol/L (136-145); UREA NITROGEN, BLOOD 27 mg/dL (7-18)
[2017-02-22] MEDS: PIPERACILLIN/TAZO 3.375 GM/D5W 50 ML IV SCH ×4 (05:34→23:29)
[2017-02-22] MEDS: MethylPREDNISolone SOD SUCC 125 MG/2 ML VIAL IVP SCH ×4 (05:35→23:27)
[2017-02-22] MEDS: ACETYLCYSTEINE 20% 200 MG/ML 4 ML NEB SOLUTION NEB SCH ×3 (07:33→21:27)
[2017-02-22] MEDS: ALBUTEROL SULFATE 2.5 MG/0.5 ML NEB SOLUTION NEB PRN ×3 (07:33→21:27)
[2017-02-22] MEDS: BUDESONIDE 0.5 MG/2 ML NEB SOLUTION NEB SCH ×2 (07:33→21:28)
[2017-02-22] MEDS: HEPARIN SODIUM,PORCINE 5,000 UNITS/ML VIAL SQ SCH ×3 (07:37→23:28)
[2017-02-22] MEDS: VANCOMYCIN HCL 1.25 GM in DEXTROSE 5%-WATER 250 ML IV SCH ×2 (07:37→20:46)
[2017-02-22 08:26] LABS: GLUCOSE COMMENT 1 Received Meds; GLUCOSE,POINT OF CARE 147 MG/DL (70-110)
[2017-02-22 08:32] LABS: GLUCOSE,POINT OF CARE 136 MG/DL (70-110)
[2017-02-22] MEDS: PANTOPRAZOLE SODIUM 40 MG/VIAL IVP SCH (08:54)
[2017-02-22] MEDS: BusPIRone HCL 5 MG TABLET PO SCH ×2 (08:55→20:49)
[2017-02-22] MEDS: DOCUSATE SODIUM 100 MG CAPSULE PO SCH ×2 (08:55→20:47)
[2017-02-22] MEDS: ASPIRIN 81 MG CHEWABLE TABLET PO SCH (08:55)
[2017-02-22] MEDS: LORazepam 2 MG/ML VIAL IVP PRN ×2 (08:56→23:29)
[2017-02-22 12:48] LABS: GLUCOSE,POINT OF CARE 124 MG/DL (70-110)
[2017-02-22 14:58] LABS: ABG A-A DIFF O2 103.8 mmHg (10-20.0); ABG BASE EXCESS 5.7 mmol/L (-2.0-3.0); ABG HCO3 28.9 mmol/L (22.0-26.0); ABG PCO2 49 mmHg (35-45); ABG PH 7.409 (7.35-7.450); TEMPERATURE, FAHRENHEIT, BG 98.2 FAHREN (96.0-98.6)
[2017-02-22 14:59] LABS: ALLEN TEST, BLOOD GAS Positive
[2017-02-22 15:00] LABS: INSIPIRATORY PRESSURE, BG 30 cm H2O
[2017-02-22] MEDS: MORPHINE SULFATE 2 MG/ML SYRINGE IVP PRN ×2 (18:06→20:50)
[2017-02-22] MEDS: LORazepam 0.5 MG TABLET PO SCH (20:53)
[2017-02-22] MEDS: SIMVASTATIN 40 MG TABLET PO SCH (21:00)
[2017-02-22] MEDS ORDERED: SODIUM CHLORIDE 0.9% 250 ML IV ONE (21:03)
[2017-02-22] MEDS: IPRATROPIUM BROMIDE 0.5 MG/2.5 ML NEB SOLUTION NEB PRN (21:27)
[2017-02-23] VITALS (11 sets, daily range): BP systolic 128–174; BP diastolic 71–85
[2017-02-23] MEDS: ALBUMIN HUMAN 25%-12.5GM/50ML 50 ML IV SCH ×3 (02:03→17:01)
[2017-02-23] MEDS: PIPERACILLIN/TAZO 3.375 GM/D5W 50 ML IV SCH ×4 (02:04→23:35)
[2017-02-23] MEDS: PROPOFOL 1000 MG/ISO-OSM 100 ML IV PRN ×7 (02:38→21:53)
[2017-02-23 05:28] LABS: ANION GAP 7 mmol/L (8-16); CALCIUM, TOTAL 8.3 mg/dL (8.8-10.5); CARBON DIOXIDE 33 mmol/L (22-29); CHLORIDE 104 mmol/L (98-107); CREATININE 0.56 mg/dL (0.60-1.30); GLOMERULAR FILTR. RATE CALC > 60 mL/min (>60); POTASSIUM 3.8 mmol/L (3.5-5.1); SODIUM SERUM 144 mmol/L (136-145); UREA NITROGEN, BLOOD 27 mg/dL (7-18)
[2017-02-23 05:38] LABS: GLUCOSE,POINT OF CARE 136 MG/DL (70-110)
[2017-02-23] MEDS: INSULIN REGULAR, HUMAN 100 UNITS/ML SQ PRN ×2 (05:41→12:39)
[2017-02-23] MEDS: MethylPREDNISolone SOD SUCC 125 MG/2 ML VIAL IVP SCH ×3 (05:41→17:01)
[2017-02-23 07:37] LABS: GLUCOSE,POINT OF CARE 160 MG/DL (70-110)
[2017-02-23 07:37] LABS: GLUCOSE,POINT OF CARE 123 MG/DL (70-110)
[2017-02-23] MEDS: VANCOMYCIN HCL 1.25 GM in DEXTROSE 5%-WATER 250 ML IV SCH ×2 (07:39→19:34)
[2017-02-23] MEDS: HEPARIN SODIUM,PORCINE 5,000 UNITS/ML VIAL SQ SCH ×2 (07:57→16:52)
[2017-02-23] MEDS: PANTOPRAZOLE SODIUM 40 MG/VIAL IVP SCH (09:11)
[2017-02-23] MEDS: ASPIRIN 81 MG CHEWABLE TABLET PO SCH (09:13)
[2017-02-23] MEDS: BusPIRone HCL 5 MG TABLET PO SCH ×2 (09:14→21:55)
[2017-02-23] MEDS: DOCUSATE SODIUM 100 MG CAPSULE PO SCH ×2 (09:14→21:50)
[2017-02-23] MEDS: IPRATROPIUM BROMIDE 0.5 MG/2.5 ML NEB SOLUTION NEB PRN ×2 (09:17→21:49)
[2017-02-23] MEDS: BUDESONIDE 0.5 MG/2 ML NEB SOLUTION NEB SCH ×2 (09:17→21:49)
[2017-02-23] MEDS: ALBUTEROL SULFATE 2.5 MG/0.5 ML NEB SOLUTION NEB PRN ×3 (09:17→21:49)
[2017-02-23] MEDS: ACETYLCYSTEINE 20% 200 MG/ML 4 ML NEB SOLUTION NEB SCH ×3 (09:17→21:49)
[2017-02-23 13:52] LABS: GLUCOSE COMMENT 1 Received Meds; GLUCOSE,POINT OF CARE 138 MG/DL (70-110)
[2017-02-23] MEDS: LORazepam 2 MG/ML VIAL IVP PRN (19:33)
[2017-02-23] MEDS: MORPHINE SULFATE 2 MG/ML SYRINGE IVP PRN (19:34)
[2017-02-23] MEDS: LORazepam 0.5 MG TABLET PO SCH (21:50)
[2017-02-23] MEDS: SIMVASTATIN 40 MG TABLET PO SCH (21:50)
[2017-02-24] VITALS (12 sets, daily range): BP systolic 85–180; BP diastolic 55–87
[2017-02-24] MEDS: HEPARIN SODIUM,PORCINE 5,000 UNITS/ML VIAL SQ SCH ×3 (00:04→16:00)
[2017-02-24] MEDS: MethylPREDNISolone SOD SUCC 125 MG/2 ML VIAL IVP SCH ×4 (00:04→18:00)
[2017-02-24] MEDS: PROPOFOL 1000 MG/ISO-OSM 100 ML IV PRN ×5 (01:03→22:30)
[2017-02-24] MEDS: LORazepam 2 MG/ML VIAL IVP PRN ×3 (01:35→14:16)
[2017-02-24] MEDS: ALBUMIN HUMAN 25%-12.5GM/50ML 50 ML IV SCH ×3 (01:42→18:00)
[2017-02-24 03:18] LABS: GLUCOSE,POINT OF CARE 135 MG/DL (70-110)
[2017-02-24 04:43] LABS: EOSINOPHILS % (AUTO) 0.03 % (1.0-6.0); HEMATOCRIT 29.6 % (41-53); HEMOGLOBIN 9.5 g/dL (13.5-17.5); LYMPHOCYTES # (AUTO) 0.3 K/uL (1.0-4.8); LYMPHOCYTES % (AUTO) 2.1 % (22.0-44.0); MEAN CORPUSCULAR HEMOGLOBIN 28.5 pg (26.0-34.0); MEAN CORPUSCULAR HGB CONC 31.9 G/dL (31.0-37.0); MEAN CORPUSCULAR VOLUME 89 fL (80-100); MONOCYTES # (AUTO) 0.4 K/uL (0.1-1.0); NEUTROPHILS # (AUTO) 11.5 K/uL (1.8-7.7); PLATELET COUNT (AUTO) 347 K/uL (150-450); RED BLOOD CELL COUNT(AUTO) 3.32 MIL/uL (4.50-5.90); RED CELL DISTRIBUTION WIDTH 15.5 % (11.5-14.5); WHITE BLOOD COUNT (AUTO) 12.1 K/uL (4.5-11.0)
[2017-02-24 04:47] LABS: NEUTROPHILS % (AUTO) 94.9 % (40.0-70.0)
[2017-02-24 04:58] LABS: ANION GAP 4 mmol/L (8-16); CALCIUM, TOTAL 8.3 mg/dL (8.8-10.5); CARBON DIOXIDE 34 mmol/L (22-29); CHLORIDE 100 mmol/L (98-107); CREATININE 0.57 mg/dL (0.60-1.30); GLOMERULAR FILTR. RATE CALC > 60 mL/min (>60); POTASSIUM 3.4 mmol/L (3.5-5.1); SODIUM SERUM 138 mmol/L (136-145); UREA NITROGEN, BLOOD 26 mg/dL (7-18)
[2017-02-24] MEDS: PIPERACILLIN/TAZO 3.375 GM/D5W 50 ML IV SCH ×4 (05:15→22:29)
[2017-02-24 05:58] LABS: INR 1.3 (0.9-1.1); PROTHROMBIN TIME 13.4 SEC (9.4-11.6)
[2017-02-24 06:01] LABS: PARTIAL THROMBOPLASTIN TIME < 20 SEC (25-35)
[2017-02-24] MEDS: ALBUTEROL SULFATE 2.5 MG/0.5 ML NEB SOLUTION NEB PRN ×3 (07:31→21:42)
[2017-02-24] MEDS: ACETYLCYSTEINE 20% 200 MG/ML 4 ML NEB SOLUTION NEB SCH ×3 (07:32→21:42)
[2017-02-24] MEDS: BUDESONIDE 0.5 MG/2 ML NEB SOLUTION NEB SCH ×2 (07:32→21:42)
[2017-02-24 08:13] LABS: GLUCOSE,POINT OF CARE 123 MG/DL (70-110)
[2017-02-24] MEDS: VANCOMYCIN HCL 1.25 GM in DEXTROSE 5%-WATER 250 ML IV SCH ×2 (08:37→20:30)
[2017-02-24] MEDS: ASPIRIN 81 MG CHEWABLE TABLET PO SCH (08:38)
[2017-02-24] MEDS: BusPIRone HCL 5 MG TABLET PO SCH ×2 (08:38→20:30)
[2017-02-24] MEDS: PANTOPRAZOLE SODIUM 40 MG/VIAL IVP SCH (08:38)
[2017-02-24] MEDS: DOCUSATE SODIUM 100 MG CAPSULE PO SCH ×2 (08:39→20:30)
[2017-02-24] MEDS ORDERED: SODIUM CHLORIDE 0.9% 0 ML IV ONE (10:50)
[2017-02-24] MEDS ORDERED: LIDOCAINE HCL/PF 1% 30 ML VIAL ONE (10:50)
[2017-02-24] MEDS ORDERED: MIDAZOLAM HCL 2 MG/2 ML VIAL IVP ONE (12:00)
[2017-02-24] MEDS ORDERED: EPHEDrine SULFATE 50 MG/ML VIAL IVP ONE (12:00)
[2017-02-24] MEDS: MORPHINE SULFATE 2 MG/ML SYRINGE IVP PRN ×2 (14:16→22:42)
[2017-02-24] MEDS: LORazepam 0.5 MG TABLET PO SCH (20:30)
[2017-02-24] MEDS: SIMVASTATIN 40 MG TABLET PO SCH (20:30)
[2017-02-25] VITALS (13 sets, daily range): BP systolic 103–157; BP diastolic 59–92
[2017-02-25] MEDS: HEPARIN SODIUM,PORCINE 5,000 UNITS/ML VIAL SQ SCH ×2 (00:25→08:00)
[2017-02-25] MEDS: MethylPREDNISolone SOD SUCC 125 MG/2 ML VIAL IVP SCH ×4 (00:25→17:09)
[2017-02-25] MEDS: LORazepam 2 MG/ML VIAL IVP PRN ×4 (00:28→21:25)
[2017-02-25] MEDS: ALBUMIN HUMAN 25%-12.5GM/50ML 50 ML IV SCH ×3 (01:26→17:09)
[2017-02-25] MEDS: PROPOFOL 1000 MG/ISO-OSM 100 ML IV PRN ×4 (02:11→20:48)
[2017-02-25] MEDS: PIPERACILLIN/TAZO 3.375 GM/D5W 50 ML IV SCH ×4 (05:13→23:29)
[2017-02-25 05:17] LABS: GLUCOSE COMMENT 1 Received Meds; GLUCOSE,POINT OF CARE 90 MG/DL (70-110)
[2017-02-25 05:22] LABS: GLUCOSE COMMENT 1 Received Meds; GLUCOSE,POINT OF CARE 120 MG/DL (70-110)
[2017-02-25] MEDS ORDERED: SODIUM CHLORIDE 0.9% 250 ML IV ONE ×2 (05:55→08:37)
[2017-02-25 07:02] LABS: BASOPHILS # (AUTO) 0.09 K/uL (0.00-0.20); BASOPHILS % (AUTO) 0.5 % (0.0-2.0); EOSINOPHILS % (AUTO) 0.01 % (1.0-6.0); HEMATOCRIT 29.6 % (41-53); HEMOGLOBIN 9.7 g/dL (13.5-17.5); LYMPHOCYTES # (AUTO) 0.4 K/uL (1.0-4.8); LYMPHOCYTES % (AUTO) 2.2 % (22.0-44.0); MEAN CORPUSCULAR HEMOGLOBIN 29.1 pg (26.0-34.0); MEAN CORPUSCULAR HGB CONC 32.6 G/dL (31.0-37.0); MEAN CORPUSCULAR VOLUME 89 fL (80-100); MONOCYTES # (AUTO) 0.4 K/uL (0.1-1.0); NEUTROPHILS # (AUTO) 18.9 K/uL (1.8-7.7); PLATELET COUNT (AUTO) 313 K/uL (150-450); RED BLOOD CELL COUNT(AUTO) 3.32 MIL/uL (4.50-5.90); RED CELL DISTRIBUTION WIDTH 15.1 % (11.5-14.5); WHITE BLOOD COUNT (AUTO) 19.8 K/uL (4.5-11.0)
[2017-02-25 07:09] LABS: NEUTROPHILS % (AUTO) 95.4 % (40.0-70.0)
[2017-02-25 07:17] LABS: ANION GAP 10 mmol/L (8-16); CALCIUM, TOTAL 8.2 mg/dL (8.8-10.5); CARBON DIOXIDE 31 mmol/L (22-29); CHLORIDE 101 mmol/L (98-107); CREATININE 0.69 mg/dL (0.60-1.30); GLOMERULAR FILTR. RATE CALC > 60 mL/min (>60); POTASSIUM 3.9 mmol/L (3.5-5.1); SODIUM SERUM 142 mmol/L (136-145); UREA NITROGEN, BLOOD 28 mg/dL (7-18)
[2017-02-25] MEDS ORDERED: LIDOCAINE HCL/PF 1% 30 ML VIAL ONE (07:31)
[2017-02-25] MEDS: BusPIRone HCL 5 MG TABLET PO SCH ×3 (09:00→21:00)
[2017-02-25] MEDS: PANTOPRAZOLE SODIUM 40 MG/VIAL IVP SCH (09:00)
[2017-02-25] MEDS: DOCUSATE SODIUM 100 MG CAPSULE PO SCH ×3 (09:00→21:00)
[2017-02-25] MEDS: ASPIRIN 81 MG CHEWABLE TABLET PO SCH (09:00)
[2017-02-25] MEDS: VANCOMYCIN HCL 1.25 GM in DEXTROSE 5%-WATER 250 ML IV SCH ×2 (09:40→20:46)
[2017-02-25] MEDS: BUDESONIDE 0.5 MG/2 ML NEB SOLUTION NEB SCH ×2 (10:04→19:41)
[2017-02-25] MEDS: IPRATROPIUM BROMIDE 0.5 MG/2.5 ML NEB SOLUTION NEB PRN ×2 (10:18→21:32)
[2017-02-25] MEDS: ACETYLCYSTEINE 20% 200 MG/ML 4 ML NEB SOLUTION NEB SCH ×3 (10:18→21:32)
[2017-02-25] MEDS: ALBUTEROL SULFATE 2.5 MG/0.5 ML NEB SOLUTION NEB PRN ×2 (10:18→21:32)
[2017-02-25] MEDS ORDERED: SODIUM CHLORIDE 0.9% 1,000 ML IV ONE (10:48)
[2017-02-25] MEDS ORDERED: SODIUM CHLORIDE 0.9% 500 ML IV ONE ×2 (10:48→22:55)
[2017-02-25 11:30] LABS: ABG A-A DIFF O2 128.5 mmHg (10-20.0); ABG BASE EXCESS 3.4 mmol/L (-2.0-3.0); ABG HCO3 26.8 mmol/L (22.0-26.0); ABG OXYHEMOGLOBIN 89.7 % (94.0-100.0); ABG PCO2 51 mmHg (35-45); ABG PH 7.368 (7.35-7.450)
[2017-02-25 11:31] LABS: ALLEN TEST, BLOOD GAS Positive; INSIPIRATORY PRESSURE, BG 30 cm H2O
[2017-02-25] MEDS ORDERED: FentaNYL CITRATE-PF 100 MCG/2 ML VIAL IVP ONE (12:00)
[2017-02-25] MEDS ORDERED: PROPOFOL 1% 20 ML VIAL IVP ONE (12:00)
[2017-02-25] MEDS ORDERED: 0.9% SODIUM CHLORIDE 10 ML VIAL IVP ONE (12:00)
[2017-02-25] MEDS ORDERED: SUCCINYLCHOLINE CHLORIDE 20 MG/ML 10 ML VIAL IVP ONE (12:00)
[2017-02-25] MEDS ORDERED: EPHEDrine SULFATE 50 MG/ML VIAL IVP ONE (12:00)
[2017-02-25] MEDS ORDERED: PHENYLEPHRINE HCL 10 MG/ML VIAL IVP ONE (12:00)
[2017-02-25] MEDS ORDERED: MIDAZOLAM HCL 2 MG/2 ML VIAL IVP ONE ×2 (12:00)
[2017-02-25] MEDS ORDERED: ROCURONIUM BROMIDE 10 MG/ML 5 ML VIAL IVP ONE (12:00)
[2017-02-25] MEDS ORDERED: LIDOCAINE HCL/PF 2% 5 ML VIAL INJ ONE (12:00)
[2017-02-25] MEDS: MORPHINE SULFATE 2 MG/ML SYRINGE IVP PRN (12:30)
[2017-02-25] MEDS: SODIUM CHLORIDE 0.9% 1,000 ML IV SCH ×2 (12:58→20:54)
[2017-02-25 15:37] LABS: GLUCOSE COMMENT 1 Received Meds; GLUCOSE,POINT OF CARE 120 MG/DL (70-110)
[2017-02-25] MEDS: LORazepam 0.5 MG TABLET PO SCH ×2 (20:46→21:00)
[2017-02-25] MEDS: SIMVASTATIN 40 MG TABLET PO SCH ×2 (20:47→21:00)
[2017-02-26] VITALS (16 sets, daily range): BP systolic 117–179; BP diastolic 61–107
[2017-02-26] MEDS: MethylPREDNISolone SOD SUCC 125 MG/2 ML VIAL IVP SCH ×3 (00:17→11:09)
[2017-02-26] MEDS: PROPOFOL 1000 MG/ISO-OSM 100 ML IV PRN ×6 (00:18→21:17)
[2017-02-26] MEDS: ALBUMIN HUMAN 25%-12.5GM/50ML 50 ML IV SCH ×3 (02:00→17:29)
[2017-02-26] MEDS: SODIUM CHLORIDE 0.9% 1,000 ML IV SCH ×3 (03:02→17:28)
[2017-02-26] MEDS: LORazepam 2 MG/ML VIAL IVP PRN (03:04)
[2017-02-26] MEDS: MORPHINE SULFATE 2 MG/ML SYRINGE IVP PRN ×2 (03:05→09:07)
[2017-02-26 05:15] LABS: BASOPHILS # (AUTO) 0.04 K/uL (0.00-0.20); BASOPHILS % (AUTO) 0.3 % (0.0-2.0); EOSINOPHILS % (AUTO) 0.01 % (1.0-6.0); HEMATOCRIT 28.3 % (41-53); HEMOGLOBIN 9.3 g/dL (13.5-17.5); LYMPHOCYTES # (AUTO) 0.3 K/uL (1.0-4.8); LYMPHOCYTES % (AUTO) 2.5 % (22.0-44.0); MEAN CORPUSCULAR HEMOGLOBIN 29.1 pg (26.0-34.0); MEAN CORPUSCULAR HGB CONC 32.8 G/dL (31.0-37.0); MEAN CORPUSCULAR VOLUME 89 fL (80-100); MONOCYTES # (AUTO) 0.4 K/uL (0.1-1.0); MONOCYTES % (AUTO) 2.7 % (2.0-9.0); NEUTROPHILS # (AUTO) 12.4 K/uL (1.8-7.7); PLATELET COUNT (AUTO) 252 K/uL (150-450); RED BLOOD CELL COUNT(AUTO) 3.19 MIL/uL (4.50-5.90); RED CELL DISTRIBUTION WIDTH 15.2 % (11.5-14.5); WHITE BLOOD COUNT (AUTO) 13.1 K/uL (4.5-11.0)
[2017-02-26 05:20] LABS: ANION GAP 8 mmol/L (8-16); CALCIUM, TOTAL 7.6 mg/dL (8.8-10.5); CARBON DIOXIDE 31 mmol/L (22-29); CHLORIDE 105 mmol/L (98-107); CREATININE 0.55 mg/dL (0.60-1.30); GLOMERULAR FILTR. RATE CALC > 60 mL/min (>60); POTASSIUM 3.2 mmol/L (3.5-5.1); SODIUM SERUM 144 mmol/L (136-145); UREA NITROGEN, BLOOD 23 mg/dL (7-18)
[2017-02-26 05:29] LABS: NEUTROPHILS % (AUTO) 94.5 % (40.0-70.0)
[2017-02-26] MEDS: PIPERACILLIN/TAZO 3.375 GM/D5W 50 ML IV SCH ×4 (05:30→23:28)
[2017-02-26 07:13] LABS: GLUCOSE,POINT OF CARE 101 MG/DL (70-110)
[2017-02-26] MEDS: ALBUTEROL SULFATE 2.5 MG/0.5 ML NEB SOLUTION NEB PRN ×3 (07:38→21:55)
[2017-02-26] MEDS: BUDESONIDE 0.5 MG/2 ML NEB SOLUTION NEB SCH ×2 (07:38→19:28)
[2017-02-26] MEDS: ACETYLCYSTEINE 20% 200 MG/ML 4 ML NEB SOLUTION NEB SCH ×3 (08:01→21:55)
[2017-02-26] MEDS: VANCOMYCIN HCL 1.25 GM in DEXTROSE 5%-WATER 250 ML IV SCH ×2 (08:59→20:44)
[2017-02-26] MEDS: DOCUSATE SODIUM 100 MG CAPSULE PO SCH ×2 (09:00→20:45)
[2017-02-26] MEDS: PANTOPRAZOLE SODIUM 40 MG/VIAL IVP SCH (09:00)
[2017-02-26] MEDS: ASPIRIN 81 MG CHEWABLE TABLET PO SCH (09:00)
[2017-02-26] MEDS: BusPIRone HCL 5 MG TABLET PO SCH ×2 (09:00→20:45)
[2017-02-26 09:28] LABS: GLUCOSE,POINT OF CARE 116 MG/DL (70-110)
[2017-02-26 09:28] LABS: GLUCOSE,POINT OF CARE 98 MG/DL (70-110)
[2017-02-26 09:28] LABS: GLUCOSE,POINT OF CARE 114 MG/DL (70-110)
[2017-02-26] MEDS: POTASSIUM CHL 10 MEQ/WATER 50 ML IV SCH ×3 (11:08→17:29)
[2017-02-26 11:37] LABS: GLUCOSE,POINT OF CARE 143 MG/DL (70-110)
[2017-02-26] MEDS: MethylPREDNISolone SOD SUCC 40 MG/ML VIAL IVP SCH ×2 (17:28→23:53)
[2017-02-26] MEDS: SIMVASTATIN 40 MG TABLET PO SCH (20:45)
[2017-02-26] MEDS: LORazepam 0.5 MG TABLET PO SCH (21:16)
[2017-02-26] MEDS: IPRATROPIUM BROMIDE 0.5 MG/2.5 ML NEB SOLUTION NEB PRN (21:55)
[2017-02-27] VITALS (18 sets, daily range): BP systolic 100–170; BP diastolic 60–109
[2017-02-27] MEDS: PROPOFOL 1000 MG/ISO-OSM 100 ML IV PRN ×6 (01:07→20:50)
[2017-02-27] MEDS: ALBUMIN HUMAN 25%-12.5GM/50ML 50 ML IV SCH ×3 (02:54→18:26)
[2017-02-27] MEDS: MORPHINE SULFATE 2 MG/ML SYRINGE IVP PRN ×3 (03:38→22:49)
[2017-02-27] MEDS: SODIUM CHLORIDE 0.9% 1,000 ML IV SCH ×3 (04:24→19:33)
[2017-02-27] MEDS: LORazepam 2 MG/ML VIAL IVP PRN ×2 (04:59→22:49)
[2017-02-27] MEDS: PIPERACILLIN/TAZO 3.375 GM/D5W 50 ML IV SCH ×4 (05:04→22:47)
[2017-02-27 05:52] LABS: ANION GAP 7 mmol/L (8-16); CALCIUM, TOTAL 7.7 mg/dL (8.8-10.5); CARBON DIOXIDE 32 mmol/L (22-29); CHLORIDE 105 mmol/L (98-107); CREATININE 0.65 mg/dL (0.60-1.30); GLOMERULAR FILTR. RATE CALC > 60 mL/min (>60); POTASSIUM 3.4 mmol/L (3.5-5.1); SODIUM SERUM 144 mmol/L (136-145); UREA NITROGEN, BLOOD 21 mg/dL (7-18)
[2017-02-27] MEDS: MethylPREDNISolone SOD SUCC 40 MG/ML VIAL IVP SCH ×3 (06:44→18:26)
[2017-02-27 08:27] LABS: GLUCOSE,POINT OF CARE 120 MG/DL (70-110)
[2017-02-27 08:27] LABS: GLUCOSE,POINT OF CARE 120 MG/DL (70-110)
[2017-02-27] MEDS: VANCOMYCIN HCL 1.25 GM in DEXTROSE 5%-WATER 250 ML IV SCH ×2 (09:36→19:33)
[2017-02-27] MEDS: PANTOPRAZOLE SODIUM 40 MG/VIAL IVP SCH (09:36)
[2017-02-27] MEDS: ASPIRIN 81 MG CHEWABLE TABLET PO SCH (09:37)
[2017-02-27] MEDS: BusPIRone HCL 5 MG TABLET PO SCH ×2 (09:37→20:48)
[2017-02-27] MEDS: DOCUSATE SODIUM 100 MG CAPSULE PO SCH ×2 (09:38→20:48)
[2017-02-27 09:57] LABS: GLUCOSE,POINT OF CARE 125 MG/DL (70-110)
[2017-02-27 10:17] LABS: ABG BASE EXCESS 4.4 mmol/L (-2.0-3.0); ABG HCO3 28.2 mmol/L (22.0-26.0); ABG OXYHEMOGLOBIN 96.5 % (94.0-100.0); ABG PCO2 40 mmHg (35-45); ABG PH 7.467 (7.35-7.450); ALLEN TEST, BLOOD GAS Positive; TEMPERATURE, FAHRENHEIT, BG 98.6 FAHREN (96.0-98.6)
[2017-02-27 10:18] LABS: ABG A-A DIFF O2 109.6 mmHg (10-20.0)
[2017-02-27] MEDS: ACETYLCYSTEINE 20% 200 MG/ML 4 ML NEB SOLUTION NEB SCH ×3 (11:19→19:53)
[2017-02-27] MEDS: BUDESONIDE 0.5 MG/2 ML NEB SOLUTION NEB SCH ×2 (11:20→19:53)
[2017-02-27 18:22] LABS: GLUCOSE,POINT OF CARE 139 MG/DL (70-110)
[2017-02-27 18:27] LABS: GLUCOSE,POINT OF CARE 125 MG/DL (70-110)
[2017-02-27 18:37] LABS: GLUCOSE,POINT OF CARE 117 MG/DL (70-110)
[2017-02-27] MEDS: ALBUTEROL SULFATE 2.5 MG/0.5 ML NEB SOLUTION NEB PRN (19:53)
[2017-02-27] MEDS: IPRATROPIUM BROMIDE 0.5 MG/2.5 ML NEB SOLUTION NEB PRN (19:53)
[2017-02-27] MEDS ORDERED: SODIUM CHLORIDE 0.9% 250 ML IV ONE (19:57)
[2017-02-27] MEDS: LORazepam 0.5 MG TABLET PO SCH (20:48)
[2017-02-27] MEDS: SIMVASTATIN 40 MG TABLET PO SCH (20:49)
[2017-02-28] VITALS (8 sets, daily range): BP systolic 127–164; BP diastolic 66–86
[2017-02-28] MEDS: MethylPREDNISolone SOD SUCC 40 MG/ML VIAL IVP SCH ×5 (00:44→23:33)
[2017-02-28] MEDS: ALBUMIN HUMAN 25%-12.5GM/50ML 50 ML IV SCH ×3 (01:22→16:43)
[2017-02-28] MEDS: PROPOFOL 1000 MG/ISO-OSM 100 ML IV PRN ×8 (02:07→23:37)
[2017-02-28] MEDS: SODIUM CHLORIDE 0.9% 1,000 ML IV SCH ×3 (03:54→19:00)
[2017-02-28] MEDS: PIPERACILLIN/TAZO 3.375 GM/D5W 50 ML IV SCH ×4 (04:01→23:33)
[2017-02-28] MEDS: INSULIN REGULAR, HUMAN 100 UNITS/ML SQ PRN ×3 (05:33→17:15)
[2017-02-28 05:57] LABS: ANION GAP 8 mmol/L (8-16); CARBON DIOXIDE 30 mmol/L (22-29); CHLORIDE 109 mmol/L (98-107); CREATININE 0.51 mg/dL (0.60-1.30); GLOMERULAR FILTR. RATE CALC > 60 mL/min (>60); POTASSIUM 3.5 mmol/L (3.5-5.1); SODIUM SERUM 147 mmol/L (136-145); UREA NITROGEN, BLOOD 22 mg/dL (7-18)
[2017-02-28 06:01] LABS: EOSINOPHILS # (AUTO) 0.02 K/uL (0.00-0.70); EOSINOPHILS % (AUTO) 0.13 % (1.0-6.0); HEMATOCRIT 28.9 % (41-53); HEMOGLOBIN 9.5 g/dL (13.5-17.5); LYMPHOCYTES # (AUTO) 0.2 K/uL (1.0-4.8); LYMPHOCYTES % (AUTO) 1.3 % (22.0-44.0); MEAN CORPUSCULAR HEMOGLOBIN 29.2 pg (26.0-34.0); MEAN CORPUSCULAR HGB CONC 32.7 G/dL (31.0-37.0); MEAN CORPUSCULAR VOLUME 89 fL (80-100); MONOCYTES # (AUTO) 0.3 K/uL (0.1-1.0); MONOCYTES % (AUTO) 2.3 % (2.0-9.0); NEUTROPHILS # (AUTO) 12.1 K/uL (1.8-7.7); RED BLOOD CELL COUNT(AUTO) 3.23 MIL/uL (4.50-5.90); RED CELL DISTRIBUTION WIDTH 15.6 % (11.5-14.5); WHITE BLOOD COUNT (AUTO) 12.6 K/uL (4.5-11.0)
[2017-02-28 06:05] LABS: NEUTROPHILS % (AUTO) 96.3 % (40.0-70.0)
[2017-02-28 06:52] LABS: GLUCOSE,POINT OF CARE 136 MG/DL (70-110)
[2017-02-28 06:52] LABS: GLUCOSE COMMENT 1 Received Meds; GLUCOSE,POINT OF CARE 141 MG/DL (70-110)
[2017-02-28] MEDS: ACETYLCYSTEINE 20% 200 MG/ML 4 ML NEB SOLUTION NEB SCH ×3 (07:13→20:47)
[2017-02-28] MEDS: ALBUTEROL SULFATE 2.5 MG/0.5 ML NEB SOLUTION NEB PRN ×3 (07:13→20:47)
[2017-02-28] MEDS: BUDESONIDE 0.5 MG/2 ML NEB SOLUTION NEB SCH ×2 (07:13→20:47)
[2017-02-28] MEDS: BusPIRone HCL 5 MG TABLET PO SCH ×2 (08:15→20:36)
[2017-02-28] MEDS: PANTOPRAZOLE SODIUM 40 MG/VIAL IVP SCH (08:15)
[2017-02-28] MEDS: VANCOMYCIN HCL 1.25 GM in DEXTROSE 5%-WATER 250 ML IV SCH ×2 (08:15→19:35)
[2017-02-28] MEDS: LORazepam 2 MG/ML VIAL IVP PRN ×2 (08:16→16:43)
[2017-02-28] MEDS: DOCUSATE SODIUM 100 MG CAPSULE PO SCH ×2 (08:16→20:29)
[2017-02-28] MEDS: ASPIRIN 81 MG CHEWABLE TABLET PO SCH (08:16)
[2017-02-28 08:48] LABS: PLATELET COUNT (AUTO) 223 K/uL (150-450); RBC MORPHOLOGY COMMENT NORMAL RBC MORPH
[2017-02-28 11:24] LABS: ABG A-A DIFF O2 34.7 mmHg (10-20.0); ABG BASE EXCESS 1.7 mmol/L (-2.0-3.0); ABG HCO3 26.1 mmol/L (22.0-26.0); ABG OXYHEMOGLOBIN 98.1 % (94.0-100.0); ABG PCO2 37 mmHg (35-45); ABG PH 7.456 (7.35-7.450); ALLEN TEST, BLOOD GAS Positive; TEMPERATURE, FAHRENHEIT, BG 98.6 FAHREN (96.0-98.6)
[2017-02-28] MEDS: IPRATROPIUM BROMIDE 0.5 MG/2.5 ML NEB SOLUTION NEB PRN (16:26)
[2017-02-28] MEDS: LORazepam 0.5 MG TABLET PO SCH (20:35)
[2017-02-28] MEDS: SIMVASTATIN 40 MG TABLET PO SCH (20:36)
[2017-03-01] VITALS (12 sets, daily range): BP systolic 111–170; BP diastolic 58–94
[2017-03-01] MEDS: SODIUM CHLORIDE 0.45% 1,000 ML IV SCH ×2 (00:07→14:46)
[2017-03-01] MEDS: INSULIN REGULAR, HUMAN 100 UNITS/ML SQ PRN ×3 (00:08→23:16)
[2017-03-01] MEDS: MORPHINE SULFATE 2 MG/ML SYRINGE IVP PRN ×3 (00:50→22:54)
[2017-03-01] MEDS: PROPOFOL 1000 MG/ISO-OSM 100 ML IV PRN ×6 (02:13→21:58)
[2017-03-01] MEDS: ALBUMIN HUMAN 25%-12.5GM/50ML 50 ML IV SCH ×2 (02:20→10:19)
[2017-03-01] MEDS: PIPERACILLIN/TAZO 3.375 GM/D5W 50 ML IV SCH ×4 (04:56→22:26)
[2017-03-01] MEDS: MethylPREDNISolone SOD SUCC 40 MG/ML VIAL IVP SCH ×2 (05:28→11:36)
[2017-03-01 06:57] LABS: GLUCOSE COMMENT 1 Received Meds; GLUCOSE,POINT OF CARE 177 MG/DL (70-110)
[2017-03-01 07:02] LABS: GLUCOSE COMMENT 1 Received Meds; GLUCOSE,POINT OF CARE 148 MG/DL (70-110)
[2017-03-01 07:02] LABS: GLUCOSE COMMENT 1 Received Meds; GLUCOSE,POINT OF CARE 161 MG/DL (70-110)
[2017-03-01 07:06] LABS: GLUCOSE COMMENT 1 Received Meds; GLUCOSE,POINT OF CARE 165 MG/DL (70-110)
[2017-03-01] MEDS: BUDESONIDE 0.5 MG/2 ML NEB SOLUTION NEB SCH ×2 (07:24→21:41)
[2017-03-01] MEDS: ALBUTEROL SULFATE 2.5 MG/0.5 ML NEB SOLUTION NEB PRN ×2 (07:24→21:41)
[2017-03-01] MEDS: ACETYLCYSTEINE 20% 200 MG/ML 4 ML NEB SOLUTION NEB SCH (07:25)
[2017-03-01 08:18] LABS: ANION GAP 8 mmol/L (8-16); CALCIUM, TOTAL 7.5 mg/dL (8.8-10.5); CARBON DIOXIDE 30 mmol/L (22-29); CHLORIDE 105 mmol/L (98-107); CREATININE 0.42 mg/dL (0.60-1.30); GLOMERULAR FILTR. RATE CALC > 60 mL/min (>60); POTASSIUM 3.4 mmol/L (3.5-5.1); SODIUM SERUM 143 mmol/L (136-145); UREA NITROGEN, BLOOD 18 mg/dL (7-18)
[2017-03-01] MEDS: BusPIRone HCL 5 MG TABLET PO SCH ×2 (08:43→20:23)
[2017-03-01] MEDS: VANCOMYCIN HCL 1.25 GM in DEXTROSE 5%-WATER 250 ML IV SCH ×2 (08:43→19:34)
[2017-03-01] MEDS: DOCUSATE SODIUM 100 MG CAPSULE PO SCH ×2 (08:43→20:18)
[2017-03-01] MEDS: ASPIRIN 81 MG CHEWABLE TABLET PO SCH (08:43)
[2017-03-01] MEDS: PANTOPRAZOLE SODIUM 40 MG/VIAL IVP SCH (08:43)
[2017-03-01] MEDS ORDERED: POTASSIUM CHLORIDE 10% 40 MEQ/30 ML LIQUID UDCUP NG PRN (12:45)
[2017-03-01] MEDS: LORazepam 2 MG/ML VIAL IVP PRN (12:53)
[2017-03-01] MEDS: HALOPERIDOL LACTATE 5 MG/ML VIAL IVP PRN ×3 (14:01→21:57)
[2017-03-01 16:17] LABS: GLUCOSE COMMENT 1 Received Meds; GLUCOSE,POINT OF CARE 146 MG/DL (70-110)
[2017-03-01] MEDS: SIMVASTATIN 40 MG TABLET PO SCH (20:23)
[2017-03-01] MEDS: LORazepam 0.5 MG TABLET PO SCH (20:23)
[2017-03-02] VITALS (16 sets, daily range): BP systolic 80–207; BP diastolic 49–112
[2017-03-02] MEDS: PROPOFOL 1000 MG/ISO-OSM 100 ML IV PRN ×3 (01:03→23:14)
[2017-03-02] MEDS: LORazepam 2 MG/ML VIAL IVP PRN ×4 (01:51→15:10)
[2017-03-02] MEDS: SODIUM CHLORIDE 0.45% 1,000 ML IV SCH ×2 (03:18→15:26)
[2017-03-02] MEDS: MORPHINE SULFATE 2 MG/ML SYRINGE IVP PRN ×5 (03:18→20:52)
[2017-03-02] MEDS: PIPERACILLIN/TAZO 3.375 GM/D5W 50 ML IV SCH ×4 (04:58→22:47)
[2017-03-02] MEDS: INSULIN REGULAR, HUMAN 100 UNITS/ML SQ PRN ×2 (05:16→23:21)
[2017-03-02 06:18] LABS: ANION GAP 6 mmol/L (8-16); CALCIUM, TOTAL 7.9 mg/dL (8.8-10.5); CARBON DIOXIDE 33 mmol/L (22-29); CHLORIDE 105 mmol/L (98-107); CREATININE 0.49 mg/dL (0.60-1.30); GLOMERULAR FILTR. RATE CALC > 60 mL/min (>60); POTASSIUM 3.9 mmol/L (3.5-5.1); SODIUM SERUM 144 mmol/L (136-145); UREA NITROGEN, BLOOD 22 mg/dL (7-18)
[2017-03-02 07:06] LABS: BASOPHILS # (AUTO) 0.01 K/uL (0.00-0.20); BASOPHILS % (AUTO) 0.1 % (0.0-2.0); EOSINOPHILS # (AUTO) 0.38 K/uL (0.00-0.70); EOSINOPHILS % (AUTO) 4.06 % (1.0-6.0); HEMATOCRIT 29.6 % (41-53); HEMOGLOBIN 9.6 g/dL (13.5-17.5); LYMPHOCYTES # (AUTO) 0.5 K/uL (1.0-4.8); LYMPHOCYTES % (AUTO) 5.7 % (22.0-44.0); MEAN CORPUSCULAR HEMOGLOBIN 29.2 pg (26.0-34.0); MEAN CORPUSCULAR HGB CONC 32.6 G/dL (31.0-37.0); MEAN CORPUSCULAR VOLUME 90 fL (80-100); MONOCYTES # (AUTO) 0.1 K/uL (0.1-1.0); NEUTROPHILS # (AUTO) 8.4 K/uL (1.8-7.7); PLATELET COUNT (AUTO) 149 K/uL (150-450); RED CELL DISTRIBUTION WIDTH 16.8 % (11.5-14.5); WHITE BLOOD COUNT (AUTO) 9.4 K/uL (4.5-11.0)
[2017-03-02] MEDS: BUDESONIDE 0.5 MG/2 ML NEB SOLUTION NEB SCH ×2 (07:38→19:53)
[2017-03-02 07:52] LABS: NEUTROPHILS % (AUTO) 89.1 % (40.0-70.0)
[2017-03-02] MEDS: PANTOPRAZOLE SODIUM 40 MG/VIAL IVP SCH (08:19)
[2017-03-02] MEDS: VANCOMYCIN HCL 1.25 GM in DEXTROSE 5%-WATER 250 ML IV SCH ×2 (08:19→19:15)
[2017-03-02] MEDS: DOCUSATE SODIUM 100 MG CAPSULE PO SCH ×2 (08:20→20:42)
[2017-03-02] MEDS: BusPIRone HCL 5 MG TABLET PO SCH ×2 (08:20→20:43)
[2017-03-02] MEDS: MethylPREDNISolone SOD SUCC 40 MG/ML VIAL IVP SCH (08:20)
[2017-03-02] MEDS: ASPIRIN 81 MG CHEWABLE TABLET PO SCH (08:20)
[2017-03-02] MEDS: HALOPERIDOL LACTATE 5 MG/ML VIAL IVP PRN ×2 (08:34→18:22)
[2017-03-02] MEDS: LACTULOSE 20 GM/30 ML SOLUTION UDCUP PO PRN (17:23)
[2017-03-02] MEDS ORDERED: 0.9% SODIUM CHLORIDE 5 ML NEB SOLUTION NEB ONE (19:50)
[2017-03-02] MEDS: SIMVASTATIN 40 MG TABLET PO SCH (20:42)
[2017-03-02] MEDS: LORazepam 0.5 MG TABLET PO SCH (20:42)
[2017-03-03] VITALS (8 sets, daily range): BP systolic 91–167; BP diastolic 58–98
[2017-03-03] MEDS: HALOPERIDOL LACTATE 5 MG/ML VIAL IVP PRN (01:07)
[2017-03-03] MEDS: PIPERACILLIN/TAZO 3.375 GM/D5W 50 ML IV SCH ×4 (04:55→22:56)
[2017-03-03] MEDS: SODIUM CHLORIDE 0.45% 1,000 ML IV SCH ×2 (05:23→17:53)
[2017-03-03] MEDS: PROPOFOL 1000 MG/ISO-OSM 100 ML IV PRN ×2 (05:36→18:08)
[2017-03-03 05:42] LABS: ANION GAP 6 mmol/L (8-16); CALCIUM, TOTAL 7.6 mg/dL (8.8-10.5); CARBON DIOXIDE 33 mmol/L (22-29); CHLORIDE 100 mmol/L (98-107); CREATININE 0.52 mg/dL (0.60-1.30); GLOMERULAR FILTR. RATE CALC > 60 mL/min (>60); POTASSIUM 3.6 mmol/L (3.5-5.1); SODIUM SERUM 139 mmol/L (136-145); UREA NITROGEN, BLOOD 24 mg/dL (7-18)
[2017-03-03 06:01] LABS: BASOPHILS # (AUTO) 0.01 K/uL (0.00-0.20); BASOPHILS % (AUTO) 0.2 % (0.0-2.0); EOSINOPHILS # (AUTO) 0.57 K/uL (0.00-0.70); EOSINOPHILS % (AUTO) 6.95 % (1.0-6.0); HEMATOCRIT 30.6 % (41-53); HEMOGLOBIN 9.8 g/dL (13.5-17.5); LYMPHOCYTES # (AUTO) 0.6 K/uL (1.0-4.8); LYMPHOCYTES % (AUTO) 7.7 % (22.0-44.0); MEAN CORPUSCULAR HEMOGLOBIN 29.4 pg (26.0-34.0); MEAN CORPUSCULAR HGB CONC 32.1 G/dL (31.0-37.0); MEAN CORPUSCULAR VOLUME 91 fL (80-100); MONOCYTES # (AUTO) 0.2 K/uL (0.1-1.0); MONOCYTES % (AUTO) 2.4 % (2.0-9.0); NEUTROPHILS # (AUTO) 6.8 K/uL (1.8-7.7); NEUTROPHILS % (AUTO) 82.8 % (40.0-70.0); PLATELET COUNT (AUTO) 134 K/uL (150-450); RED BLOOD CELL COUNT(AUTO) 3.34 MIL/uL (4.50-5.90); RED CELL DISTRIBUTION WIDTH 17.4 % (11.5-14.5)
[2017-03-03] MEDS: POTASSIUM CHL 10 MEQ/WATER 50 ML IV PRN ×3 (07:31→09:47)
[2017-03-03 07:47] LABS: WHITE BLOOD COUNT (AUTO) 9.2 K/uL (4.5-11.0)
[2017-03-03] MEDS: BUDESONIDE 0.5 MG/2 ML NEB SOLUTION NEB SCH ×2 (07:50→20:10)
[2017-03-03] MEDS: MethylPREDNISolone SOD SUCC 40 MG/ML VIAL IVP SCH (08:11)
[2017-03-03] MEDS: DOCUSATE SODIUM 100 MG CAPSULE PO SCH ×2 (08:11→20:21)
[2017-03-03] MEDS: BusPIRone HCL 5 MG TABLET PO SCH ×2 (08:11→20:21)
[2017-03-03] MEDS: VANCOMYCIN HCL 1.25 GM in DEXTROSE 5%-WATER 250 ML IV SCH ×2 (08:11→19:51)
[2017-03-03] MEDS: ASPIRIN 81 MG CHEWABLE TABLET PO SCH (08:12)
[2017-03-03] MEDS: PANTOPRAZOLE SODIUM 40 MG/VIAL IVP SCH (08:13)
[2017-03-03] MEDS: LORazepam 2 MG/ML VIAL IVP PRN (09:43)
[2017-03-03] MEDS: MORPHINE SULFATE 2 MG/ML SYRINGE IVP PRN ×2 (10:46→21:03)
[2017-03-03 10:54] LABS: GLUCOSE,POINT OF CARE 133 MG/DL (70-110)
[2017-03-03 10:54] LABS: GLUCOSE,POINT OF CARE 100 MG/DL (70-110)
[2017-03-03 10:54] LABS: GLUCOSE,POINT OF CARE 101 MG/DL (70-110)
[2017-03-03 10:59] LABS: GLUCOSE,POINT OF CARE 136 MG/DL (70-110)
[2017-03-03 10:59] LABS: GLUCOSE,POINT OF CARE 107 MG/DL (70-110)
[2017-03-03 10:59] LABS: GLUCOSE,POINT OF CARE 126 MG/DL (70-110)
[2017-03-03 11:03] LABS: GLUCOSE,POINT OF CARE 110 MG/DL (70-110)
[2017-03-03 11:36] LABS: ABG A-A DIFF O2 75.1 mmHg (10-20.0); ABG BASE EXCESS 8.5 mmol/L (-2.0-3.0); ABG HCO3 30.9 mmol/L (22.0-26.0); ABG OXYHEMOGLOBIN 92.5 % (94.0-100.0); ABG PCO2 57 mmHg (35-45); ABG PH 7.387 (7.35-7.450); TEMPERATURE, FAHRENHEIT, BG 98.7 FAHREN (96.0-98.6)
[2017-03-03 11:37] LABS: ALLEN TEST, BLOOD GAS Positive
[2017-03-03 12:48] LABS: ABG A-A DIFF O2 83.2 mmHg (10-20.0); ABG BASE EXCESS 8.2 mmol/L (-2.0-3.0); ABG HCO3 30.6 mmol/L (22.0-26.0); ABG OXYHEMOGLOBIN 92.9 % (94.0-100.0); ABG PCO2 55 mmHg (35-45); ABG PH 7.396 (7.35-7.450); ALLEN TEST, BLOOD GAS Positive
[2017-03-03 13:17] LABS: GLUCOSE COMMENT 1 Received Meds; GLUCOSE,POINT OF CARE 189 MG/DL (70-110)
[2017-03-03] MEDS: INSULIN REGULAR, HUMAN 100 UNITS/ML SQ PRN ×2 (13:18→23:45)
[2017-03-03 13:33] LABS: ANION GAP 4 mmol/L (8-16); CALCIUM, TOTAL 7.7 mg/dL (8.8-10.5); CARBON DIOXIDE 35 mmol/L (22-29); CHLORIDE 100 mmol/L (98-107); CREATININE 0.57 mg/dL (0.60-1.30); GLOMERULAR FILTR. RATE CALC > 60 mL/min (>60); POTASSIUM 4.2 mmol/L (3.5-5.1); SODIUM SERUM 139 mmol/L (136-145); UREA NITROGEN, BLOOD 21 mg/dL (7-18)
[2017-03-03] MEDS ORDERED: SODIUM CHLORIDE 0.9% 250 ML IV ONE (18:05)
[2017-03-03] MEDS: ALBUTEROL SULFATE 2.5 MG/0.5 ML NEB SOLUTION NEB PRN (20:10)
[2017-03-03] MEDS: SIMVASTATIN 40 MG TABLET PO SCH (20:21)
[2017-03-03] MEDS: LACTULOSE 20 GM/30 ML SOLUTION UDCUP PO PRN (20:21)
[2017-03-03] MEDS: LORazepam 0.5 MG TABLET PO SCH (20:21)
[2017-03-03 23:27] LABS: GLUCOSE,POINT OF CARE 134 MG/DL (70-110)
[2017-03-03 23:27] LABS: GLUCOSE,POINT OF CARE 112 MG/DL (70-110)
[2017-03-04] VITALS (7 sets, daily range): BP systolic 102–177; BP diastolic 61–92
[2017-03-04] MEDS: PROPOFOL 1000 MG/ISO-OSM 100 ML IV PRN ×4 (00:50→20:31)
[2017-03-04] MEDS: MORPHINE SULFATE 2 MG/ML SYRINGE IVP PRN ×2 (02:04→10:41)
[2017-03-04] MEDS: PIPERACILLIN/TAZO 3.375 GM/D5W 50 ML IV SCH ×4 (05:03→23:38)
[2017-03-04 05:17] LABS: GLUCOSE,POINT OF CARE 107 MG/DL (70-110)
[2017-03-04 06:04] LABS: ANION GAP 4 mmol/L (8-16); CALCIUM, TOTAL 8.3 mg/dL (8.8-10.5); CARBON DIOXIDE 38 mmol/L (22-29); CHLORIDE 101 mmol/L (98-107); GLOMERULAR FILTR. RATE CALC > 60 mL/min (>60); SODIUM SERUM 143 mmol/L (136-145); UREA NITROGEN, BLOOD 16 mg/dL (7-18)
[2017-03-04] MEDS: INSULIN REGULAR, HUMAN 100 UNITS/ML SQ PRN ×2 (06:12→12:24)
[2017-03-04] MEDS: VANCOMYCIN HCL 1.25 GM in DEXTROSE 5%-WATER 250 ML IV SCH ×2 (08:50→20:32)
[2017-03-04] MEDS: ASPIRIN 81 MG CHEWABLE TABLET PO SCH (08:51)
[2017-03-04] MEDS: BusPIRone HCL 5 MG TABLET PO SCH ×2 (08:51→20:44)
[2017-03-04] MEDS: DOCUSATE SODIUM 100 MG CAPSULE PO SCH ×2 (08:51→20:43)
[2017-03-04] MEDS: PANTOPRAZOLE SODIUM 40 MG/VIAL IVP SCH (08:52)
[2017-03-04] MEDS: MethylPREDNISolone SOD SUCC 40 MG/ML VIAL IVP SCH (08:52)
[2017-03-04] MEDS: SODIUM CHLORIDE 0.45% 1,000 ML IV SCH (08:52)
[2017-03-04] MEDS: BUDESONIDE 0.5 MG/2 ML NEB SOLUTION NEB SCH ×2 (09:16→20:39)
[2017-03-04 17:03] LABS: INR 1.1 (0.9-1.1); PROTHROMBIN TIME 11.2 SEC (9.4-11.6)
[2017-03-04] MEDS ORDERED: 0.9% SODIUM CHLORIDE 5 ML NEB SOLUTION NEB ONE (20:20)
[2017-03-04] MEDS: LORazepam 0.5 MG TABLET PO SCH (20:44)
[2017-03-04] MEDS: SIMVASTATIN 40 MG TABLET PO SCH (20:47)
[2017-03-05] VITALS (9 sets, daily range): BP systolic 90–191; BP diastolic 60–99
[2017-03-05] MEDS: PROPOFOL 1000 MG/ISO-OSM 100 ML IV PRN ×4 (00:32→15:37)
[2017-03-05] MEDS: SODIUM CHLORIDE 0.45% 1,000 ML IV SCH ×2 (00:50→10:25)
[2017-03-05] MEDS: LORazepam 2 MG/ML VIAL IVP PRN (01:06)
[2017-03-05 04:57] LABS: GLUCOSE,POINT OF CARE 157 MG/DL (70-110)
[2017-03-05 04:57] LABS: GLUCOSE,POINT OF CARE 136 MG/DL (70-110)
[2017-03-05] MEDS: MORPHINE SULFATE 2 MG/ML SYRINGE IVP PRN ×3 (05:18→16:28)
[2017-03-05] MEDS: PIPERACILLIN/TAZO 3.375 GM/D5W 50 ML IV SCH ×3 (05:23→17:55)
[2017-03-05] MEDS: BUDESONIDE 0.5 MG/2 ML NEB SOLUTION NEB SCH (07:32)
[2017-03-05 07:42] LABS: GLUCOSE,POINT OF CARE 94 MG/DL (70-110)
[2017-03-05 07:42] LABS: GLUCOSE,POINT OF CARE 76 MG/DL (70-110)
[2017-03-05] MEDS: VANCOMYCIN HCL 1.25 GM in DEXTROSE 5%-WATER 250 ML IV SCH (07:53)
[2017-03-05 08:05] LABS: ANION GAP 8 mmol/L (8-16); CARBON DIOXIDE 38 mmol/L (22-29); CHLORIDE 96 mmol/L (98-107); CREATININE 0.56 mg/dL (0.60-1.30); GLOMERULAR FILTR. RATE CALC > 60 mL/min (>60); POTASSIUM 3.8 mmol/L (3.5-5.1); SODIUM SERUM 142 mmol/L (136-145); UREA NITROGEN, BLOOD 14 mg/dL (7-18)
[2017-03-05] MEDS: PANTOPRAZOLE SODIUM 40 MG/VIAL IVP SCH (08:29)
[2017-03-05] MEDS: MethylPREDNISolone SOD SUCC 40 MG/ML VIAL IVP SCH (08:30)
[2017-03-05] MEDS: BusPIRone HCL 5 MG TABLET PO SCH (09:00)
[2017-03-05] MEDS: DOCUSATE SODIUM 100 MG CAPSULE PO SCH (09:00)
[2017-03-05] MEDS: ASPIRIN 81 MG CHEWABLE TABLET PO SCH (09:00)
[2017-03-05] MEDS ORDERED: LORazepam 2 MG/ML VIAL IVP PRN (10:15)
[2017-03-05] MEDS ORDERED: MORPHINE SULFATE 2 MG/ML SYRINGE IVP PRN (10:15)
[2017-03-05] MEDS ORDERED: SODIUM CHLORIDE 0.9% 1,000 ML IV ONE (12:21)
[2017-03-05] MEDS: INSULIN REGULAR, HUMAN 100 UNITS/ML SQ PRN (12:30)
[2017-03-05 13:22] LABS: GLUCOSE,POINT OF CARE 135 MG/DL (70-110)
[2017-03-05] MEDS ORDERED: PROPOFOL 1% 20 ML VIAL IVP ONE (18:59)
[2017-03-05] MEDS ORDERED: LIDOCAINE HCL/PF 2% 5 ML VIAL INJ ONE (18:59)
[2017-03-05] MEDS ORDERED: VANCOMYCIN HCL 1 GM/D5% WATER 200 ML IV SCH (20:00)
[2017-03-06 05:17] LABS: GLUCOSE,POINT OF CARE 111 MG/DL (70-110)
[2017-03-06] MEDS ORDERED: HYDROGEN PEROXIDE 473 ML SOLUTION TP SCH (09:00)
[2017-03-06] MEDS ORDERED: POVIDONE-IODINE 10% 120 ML SOLUTION TP SCH (09:00)
== END 2017-03-05 19:00 | DRG 3 ==
LOC: EMS 13:16 → 5S 18:28 → ICU 02-10 11:46
PROVIDERS: ADMIT Hospitalist; ATTEND Hospitalist
PROC: 0BH17EZ Insertion of Endotracheal Airway into Trachea, Via Natural or Artificial Opening (ICD-10-PCS; principal; 2017-02-10)
PROC: 5A1955Z Respiratory Ventilation, Greater than 96 Consecutive Hours (ICD-10-PCS; 2017-02-10)
PROC: 0W9930Z Drainage of Right Pleural Cavity with Drainage Device, Percutaneous Approach (ICD-10-PCS; 2017-02-13)
PROC: 0B110F4 Bypass Trachea to Cutaneous with Tracheostomy Device, Open Approach (ICD-10-PCS; 2017-02-24)
PROC: 0W3Q0ZZ Control Bleeding in Respiratory Tract, Open Approach (ICD-10-PCS; 2017-02-25)
PROC: 0BW10FZ Revision of Tracheostomy Device in Trachea, Open Approach (ICD-10-PCS; 2017-02-25)
PROC: 30233N1 Transfusion of Nonautologous Red Blood Cells into Peripheral Vein, Percutaneous Approach (ICD-10-PCS; 2017-02-25)
PROC: 0DH63UZ Insertion of Feeding Device into Stomach, Percutaneous Approach (ICD-10-PCS; 2017-03-05)
DX: J44.1 Chronic obstructive pulmonary disease with (acute) exacerbation (principal); J96.22 Acute and chronic respiratory failure with hypercapnia; G93.40 Encephalopathy, unspecified; J18.9 Pneumonia, unspecified organism; E87.2 Acidosis; J93.9 Pneumothorax, unspecified; D62 Acute posthemorrhagic anemia; J44.0 Chronic obstructive pulmonary disease with (acute) lower respiratory infection; E78.5 Hyperlipidemia, unspecified; F99 Mental disorder, not otherwise specified; E11.9 Type 2 diabetes mellitus without complications; I10 Essential (primary) hypertension; F41.9 Anxiety disorder, unspecified; I95.9 Hypotension, unspecified; R13.10 Dysphagia, unspecified; Z78.1 Physical restraint status; Z82.5 Family history of asthma and other chronic lower respiratory diseases; Z87.891 Personal history of nicotine dependence; Z79.82 Long term (current) use of aspirin; Z79.899 Other long term (current) drug therapy; Z99.81 Dependence on supplemental oxygen; Z90.49 Acquired absence of other specified parts of digestive tract; R58 Hemorrhage, not elsewhere classified
CPT/HCPCS: 71250; 77012; 82805; 82962; 83735; 84100; 84132; 84443; 86850; 86900; 86901; 86920; 87070; 87081; 87205; 93005; 93306; 93970; 94002; 94003; 94640; 94644; 94645; 94660; 96374; 99285; C9113; J0330; J1630; J1644; J2060; J2250; J2270; J2370; J2543; J2704; J2920; J2930; J3010; J3370; J3480; J3490; J7030; J7040; J7050; J7060; P9016; P9047